=== PATIENT | male | born 1950 | race African-American/Black ===

== ENCOUNTER 2016-08-07 09:38 | Emergency (ER) | payer OTHER ==
[~2016-08-07] VITALS: Ht 193 cm; Wt 79.4 kg
[~2016-08-07 09:38] MED LIST: ASPI81CH43 PO; ATEN-60 PO; BENA40TA2 PO; SIMV-13 PO
[2016-08-07 12:00] VITALS: BP 133/82
== END 2016-08-07 13:09 | disposition home or self-care (01) ==
LOC: ER 09:42
DX: S72.001D Fracture of unspecified part of neck of right femur, subsequent encounter for closed fracture with routine healing (principal); Z48.02 Encounter for removal of sutures; I12.9 Hypertensive chronic kidney disease with stage 1 through stage 4 chronic kidney disease, or unspecified chronic kidney disease; N18.3 Chronic kidney disease, stage 3 (moderate); E11.22 Type 2 diabetes mellitus with diabetic chronic kidney disease; Z86.73 Personal history of transient ischemic attack (TIA), and cerebral infarction without residual deficits

== ENCOUNTER 2019-07-20 19:40 | Inpatient (IN) | payer OTHER ==
[~2019-07-20] VITALS: Ht 188 cm; Wt 80.2 kg
[~2019-07-20 19:40] MED LIST changes: -BENA40TA2 PO; +BENA40TA7 PO
[2019-07-20] MEDS ORDERED: ACCU-CHEK COMFORT CURVE STRIP VI ONE ×2 (20:00→20:15)
[2019-07-20] MEDS ORDERED: DEXTROSE (50%) 50ML SYRG IV ONE ×2 (20:00→20:15)
[2019-07-20] MEDS ORDERED: SODIUM CHLORIDE 0.9% 1,000 ML IVB ONE (20:39)
[2019-07-20 21:02] LABS: Urine Bacteria FEW /hpf (None Seen); Urine Blood 2+ /uL (Negative); Urine Specific Gravity 1.023 (1.001-1.035); Urine WBC 129 /hpf (0 - 3)
[2019-07-20 21:26] LABS: Basophils # (auto) 0 10 ^3/uL (0-0.2); Basophils % (auto) 0.3 % (0.0-2.0); Eosinophils # (auto) 0 10 ^3/uL (0-0.8); Eosinophils % (auto) 0.5 % (0.0-7.0); Hematocrit 36.7 % (41.0-53.0); Lymphocytes # (auto) 0.9 10 ^3/uL (0.4-5.4); Lymphocytes % (auto) 15.6 % (10.0-50.0); Mean Corpuscular Hemoglobin 29.2 pg (28.0-32.0); Mean Corpuscular Hgb Conc. 32.6 g/dL (32.0-36.0); Mean Corpuscular Volume 89.6 fL (80.0-100.0); Monocytes # (auto) 0.8 10 ^3/uL (0-1.3); Monocytes % (auto) 13.9 % (0.0-12.0); Neutrophils # (auto) 3.8 10 ^3/uL (1.6-8.6); Neutrophils % (auto) 69.7 % (37.0-80.0); Nucleated Red Blood Cells % 0.1 %; Platelet Count (auto) 65 10^3/uL (140-450); Red Cell Distribution Width 15.8 % (11.8-14.3); White Blood Cell 5.5 10^3/uL (4.4-10.8)
[2019-07-20] MEDS ORDERED: cefTRIAXone 1GM/50ML D5W 50 ML IV ONE ×2 (21:30)
[2019-07-20 21:41] LABS: INR 1.18 (0.9-1.15); Partial Thromboplastin Time 27.1 sec (23.64-32.05)
[2019-07-20 21:49] LABS: Alanine Aminotransferase 26 U/L (16-61); Albumin 2.8 g/dL (3.4-5.0); Anion Gap 7 (5-15); Aspartate Aminotransferase 34 U/L (15-37); BUN/Creatinine Ratio 14.5; Blood Alcohol < 3.0 mg/dL (0-5); Blood Urea Nitrogen 18 mg/dL (7-18); Calcium 9.1 mg/dL (8.5-10.1); Carbon Dioxide 23 mmol/L (21-32); Chloride 113 mmol/L (98-107); GFR African American 74 mL/min; GFR Non-African American 61 mL/min; Glucose 135 mg/dL (74-106); Potassium 3.7 mmol/L (3.5-5.1); Sodium 143 mmol/L (136-145)
[2019-07-20 21:54] LABS: Alkaline Phosphatase 217 U/L (45-117)
[2019-07-20 22:14] LABS: Magnesium 1.5 mg/dL (1.6-2.6)
[2019-07-20 22:32] LABS: Blood Alcohol < 3.0 mg/dL (0-5)
[2019-07-20] MEDS ORDERED: D5W/SOD CHL 0.45% 1,000 ML IV SCH (22:41)
[2019-07-20] MEDS ORDERED: MORPHINE SULFATE 4 MG/ML SYR/VIAL IV PRN (22:45)
[2019-07-20] MEDS ORDERED: HYDROcodone-ACET 5/325MG TAB PO PRN (22:45)
[2019-07-20] MEDS ORDERED: DOCUSATE SOD 100 MG CAP PO PRN (22:45)
[2019-07-20] MEDS ORDERED: DEXTROSE (50%) 50ML SYRG IV PRN (22:45)
[2019-07-20] MEDS ORDERED: ACETAMINOPHEN 325 MG TAB PO PRN (22:45)
[2019-07-20] MEDS ORDERED: ONDANSETRON HCL 4 MG/2 ML VIAL IV PRN (22:45)
[2019-07-20 23:57] VITALS: BP 144/81
--- NOTE | 2019-07-21 | NUR ---
Telemetry admit from ER CARLOS GLORIA admitted to Telemetry unit. Patient oriented to VICKI OLIVO RN primary RN, [facility] unit, room 277, bed B, and unit policies regarding patient care and visiting hours. Patient now on continuous telemetry monitoring, tele box #[id number]. Patient weighed by bedscale and encouraged to call if they need something. All questions and concerns addressed, patient verbalized understanding. Note: Patient is alert to self, no S/S of distress/SOB noted. Instructed on POC and to call for assist PRN. Bed is in lowest locked position with bed rails up x2 and call light is within reach of the patient, with sitter at bedside.
[2019-07-21] MEDS: ACCU-CHEK COMFORT CURVE STRIP VI SCH ×6 (01:10→20:06)
[2019-07-21] MEDS: InsuLIN REG 1unit/0.01ml Soln (100units/ml) SC SCH ×6 (03:54→20:00)
[2019-07-21 05:00] VITALS: BP 136/74
[2019-07-21 05:10] LABS: Basophils # (auto) 0 10 ^3/uL (0-0.2); Basophils % (auto) 0.6 % (0.0-2.0); Eosinophils # (auto) 0.1 10 ^3/uL (0-0.8); Eosinophils % (auto) 1.1 % (0.0-7.0); Hematocrit 34.9 % (41.0-53.0); Hemoglobin 11.5 g/dL (13.5-17.5); Lymphocytes # (auto) 1.8 10 ^3/uL (0.4-5.4); Lymphocytes % (auto) 35.6 % (10.0-50.0); Mean Corpuscular Hemoglobin 29.6 pg (28.0-32.0); Mean Corpuscular Hgb Conc. 32.9 g/dL (32.0-36.0); Mean Corpuscular Volume 90.1 fL (80.0-100.0); Monocytes # (auto) 0.5 10 ^3/uL (0-1.3); Monocytes % (auto) 10.3 % (0.0-12.0); Neutrophils # (auto) 2.6 10 ^3/uL (1.6-8.6); Neutrophils % (auto) 52.4 % (37.0-80.0); Nucleated Red Blood Cells % 0.3 %; Platelet Count (auto) 82 10^3/uL (140-450); Red Blood Cells 3.87 10^6/uL (4.5-5.90); Red Cell Distribution Width 15.4 % (11.8-14.3)
[2019-07-21 05:36] LABS: Calcium 8.6 mg/dL (8.5-10.1); Potassium 3.4 mmol/L (3.5-5.1)
[2019-07-21 05:40] LABS: BUN/Creatinine Ratio 15.8
[2019-07-21] MEDS ORDERED: POTASSIUM CHL 20 Meq TABLET PO ONE ×3 (07:45→13:30)
[2019-07-21] MEDS ORDERED: MAGNESIUM SULFATE 1GM/100ML 100 ML IV ONE (07:45)
--- NOTE | 2019-07-21 08:15 | NUR ---
Opening Shift Note Assumed care of patient, awake, alert, and oriented to person. No S/S of distress/SOB or pain. Bed in lowest/locked position, bed rails up x2, call light within reach. Instructed on POC and to call for assist PRN. Will continue to monitor for changes Q1hr and PRN.
[2019-07-21 09:00] VITALS: BP 140/69
[2019-07-21] MEDS: LISINOPRIL 20 MG TAB PO SCH (09:08)
[2019-07-21] MEDS ORDERED: CLOPIDOGREL BISULFATE 75 MG TAB PO SCH (10:00)
[2019-07-21] MEDS ORDERED: ASPirin 81 mg TAB PO SCH (10:00)
[2019-07-21] MEDS ORDERED: ATENOLOL 25 MG TAB PO SCH (10:00)
--- NOTE | 2019-07-21 10:40 | NUR ---
Attempted PT eval. 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 Will attempt again later.
[2019-07-21] MEDS ORDERED: ONDANSETRON HCL 4 MG/2 ML VIAL IV ONE (10:45)
[2019-07-21] MEDS ORDERED: IODIXANOL 320MG/ML 100ML BTL IV ONE (10:50)
[2019-07-21] MEDS ORDERED: LIDOCAINE 2%HCL (LOCAL ANESTH.) INJ 20ML MDV ONE (10:50)
--- NOTE | 2019-07-21 11:10 | NUR ---
OFF UNIT PATIENT TAKEN TO GEOTHERMAL HVAC TECHNICIAN FOR PROCEDURE
--- NOTE | 2019-07-21 11:30 | NUR ---
ON UNIT PATIENT RETURNED TO ROOM. PROCEDURE IS BEING HELD AT THIS TIME. WILL CONTINUE TO MONITOR
[2019-07-21 13:00] VITALS: BP 139/75
[2019-07-21] MEDS ORDERED: FUROSEMIDE 20 MG/2 ML VIAL IV ONE (13:00)
[2019-07-21] MEDS ORDERED: MORPHINE SULF INJ 2 MG/ML SYRINGE 1ML IV PRN (13:15)
[2019-07-21] MEDS ORDERED: FUROSEMIDE 100 MG/10ML VIAL IV ONE (13:45)
[2019-07-21 17:00] VITALS: BP 130/79
--- NOTE | 2019-07-21 17:10 | NUR ---
PT PHYSICAL THERAPY ASSISTING PATIENT WITH AMBULATING. PATIENT AMBULATED APPROXIMATELY 50 FEET. PATIENT TOLERATED WELL
--- NOTE | 2019-07-21 19:00 | NUR ---
Opening Shift Note Assumed care of patient, awake and alert to himself and his birthday, on and off to where he is and why. No S/S of distress/SOB or pain. Pt has a sitter. Instructed on POC and to call for assist PRN, will continue to monitor for changes Q1hr and PRN. Pt in lowest possible position with bed rails up x2 and call light within reach. Will continue to monitor.
[2019-07-21 20:00] VITALS: BP 131/72
[2019-07-21] MEDS: ATORVASTATIN 20 MG TAB PO SCH (21:40)
[2019-07-21] MEDS ORDERED: cefTRIAXone 1GM/50ML D5W 50 ML IV SCH (22:00)
[2019-07-22] MEDS ORDERED: SODIUM CHLORIDE 0.9% 1,000 ML IV SCH (00:01)
[2019-07-22] MEDS: ACCU-CHEK COMFORT CURVE STRIP VI SCH ×6 (00:03→20:01)
[2019-07-22] MEDS: InsuLIN REG 1unit/0.01ml Soln (100units/ml) SC SCH ×6 (03:49→20:16)
[2019-07-22 05:52] LABS: BUN/Creatinine Ratio 17.5; Calcium 8.6 mg/dL (8.5-10.1); Potassium 4.1 mmol/L (3.5-5.1)
[2019-07-22 09:00] VITALS: BP 132/69
[2019-07-22] MEDS: LISINOPRIL 20 MG TAB PO SCH (10:03)
[2019-07-22 13:00] VITALS: BP 130/64
--- NOTE | 2019-07-22 13:15 | NUR ---
Spoke with daughter Spoke with patients daughter Katie regarding pending left heart cath consent. Per daughter she wishes to hold off on any type of procedure at this moment and is going to have patient follow up with his primary care provider. Daughter verbalizes they want to get patient out of hospital as soon as possible to reduce risk of infection with COVID-19. Daughter educated on risks of holding off on the procedure, daughter verbalized understanding. Dr. Shankar has been made aware of daughters decision.
[2019-07-22] MEDS ORDERED: LACTULOSE 20Gm/30ML SOLN PO ONE (13:45)
--- NOTE | 2019-07-22 13:51 | NUR ---
OPENING SHIFT NOTE Assumed care patient currently sleeping, no s/s of distress or SOB noted at this moment. Bed in low position, locked, side rails x 2 up, call light within reach. Chastity richardson, draining light khushboo urine, hung below waist level. Will continue care. Addendum: 07/22/19 at 1357 by RAISA RUIZ RN RN time [id number]
[2019-07-22 16:33] VITALS: BP 123/78
--- NOTE | 2019-07-22 19:00 | NUR ---
Opening Shift Note Assumed care of patient, awake and alert to himself. Sitter at bedside. No S/S of distress/SOB or pain. Instructed on POC and to call for assist PRN, will continue to monitor for changes Q1hr and PRN. Patient in the lowest possible position, with bed rails up x2 and call light within reach.
[2019-07-22 20:00] VITALS: BP 146/73
[2019-07-22 21:43] VITALS: BP 146/73
[2019-07-22] MEDS: AMOXICILLIN TRIHYDRATE 250 MG CAP PO SCH (21:54)
[2019-07-22] MEDS: LACTULOSE 20Gm/30ML SOLN PO SCH (21:55)
[2019-07-22] MEDS: ATORVASTATIN 20 MG TAB PO SCH (21:55)
[2019-07-23] MEDS: ACCU-CHEK COMFORT CURVE STRIP VI SCH ×5 (00:01→17:18)
[2019-07-23] MEDS: InsuLIN REG 1unit/0.01ml Soln (100units/ml) SC SCH ×5 (03:47→17:19)
[2019-07-23 05:01] VITALS: BP 127/68
[2019-07-23] MEDS: AMOXICILLIN TRIHYDRATE 250 MG CAP PO SCH ×2 (05:36→15:50)
--- NOTE | 2019-07-23 07:10 | NUR ---
OPENING SHIFT NOTE Assumed care patient currently sleeping, no s/s of distress or SOB noted at this moment. Bed in low position, locked, side rails x 2 up, call light within reach. Haywood patent, draining light khushboo urine, hung below waist level. Will continue care.
[2019-07-23 08:00] VITALS: BP 129/73
[2019-07-23] MEDS: LACTULOSE 20Gm/30ML SOLN PO SCH (09:58)
[2019-07-23] MEDS: LISINOPRIL 20 MG TAB PO SCH (09:59)
--- NOTE | 2019-07-23 12:08 | NUR ---
Nutrition Assessment Notes Please refer to link for full assessment notes. Est energy needs: [id number] kcals (23-25 kcal/kgBW) Est protein needs: 80-88 gms/day (1.0-1.1 gm/kgBW) Will continue to monitor and reassess prn. Addendum: 07/23/19 at [address] Amended: Links added.
[2019-07-23 13:00] VITALS: BP 143/74
--- NOTE | 2019-07-23 13:36 | NUR ---
Gamble catheter dc'd Order to discontinue gamble catheter. Gamble dc'd with clean technique following deflation of balloon. Patient tolerated well with no complaints of pain. Continue care.
[2019-07-23 14:21] VITALS: BP 123/73
--- NOTE | 2019-07-23 16:00 | NUR ---
paged Dr. Shankar paged regarding patient having six episodes of diarrhea throughout this RN's shift. Per MD there is no need to hold patients discharge. Will continue with discharge order.
[2019-07-23 17:00] VITALS: BP 130/72
--- NOTE | 2019-07-23 18:45 | NUR ---
Discharge instructions given as ordered. Encourage to follow up with [facility] as instructed. All questions and concerns addressed. Patient verbalized understanding. IV removed with catheter intact, pressure dressing applied, gamble catheter removed. Telemetry unit returned to ICU, coating technician Bibi was made aware. Patient taken to vehicle via wheelchair with all personal belongings, accompanied by staff. No distress noted at time of departure.
== END 2019-07-23 18:45 | disposition home or self-care (01) | DRG 441 ==
LOC: EDBD 19:40 → EDUNIT# 19:40 → ER 19:43 → TELE-WESTW 19:44
PROVIDERS: ADMIT Hospitalist; ATTEND Internal Medicine
DX: K72.90 Hepatic failure, unspecified without coma (principal); I21.4 Non-ST elevation (NSTEMI) myocardial infarction; I50.43 Acute on chronic combined systolic (congestive) and diastolic (congestive) heart failure; I13.0 Hypertensive heart and chronic kidney disease with heart failure and stage 1 through stage 4 chronic kidney disease, or unspecified chronic kidney disease; N30.00 Acute cystitis without hematuria; D64.9 Anemia, unspecified; D69.6 Thrombocytopenia, unspecified; E83.42 Hypomagnesemia; N18.9 Chronic kidney disease, unspecified; E87.6 Hypokalemia; E78.5 Hyperlipidemia, unspecified; E11.22 Type 2 diabetes mellitus with diabetic chronic kidney disease; I25.10 Atherosclerotic heart disease of native coronary artery without angina pectoris; K74.60 Unspecified cirrhosis of liver; B95.2 Enterococcus as the cause of diseases classified elsewhere; F03.90 Unspecified dementia, unspecified severity, without behavioral disturbance, psychotic disturbance, mood disturbance, and anxiety; E11.649 Type 2 diabetes mellitus with hypoglycemia without coma; F17.200 Nicotine dependence, unspecified, uncomplicated; Z79.4 Long term (current) use of insulin; Z86.73 Personal history of transient ischemic attack (TIA), and cerebral infarction without residual deficits; Z79.899 Other long term (current) drug therapy
CPT/HCPCS: 36415; 70450; 71045; 80048; 80053; 80061; 80320; 81001; 82140; 82962; 83036; 83605; 83735; 84484; 85025; 85610; 85730; 87040; 87086; 87088; 87186; 93005; 96361; 96365; 96367; 97116; 97163; 97530; G0378; J0696; J1815; Q9967

== ENCOUNTER 2019-12-06 09:29 | Emergency (ER) | payer OTHER ==
[~2019-12-06] VITALS: Ht 193 cm; Wt 74.4 kg
[2019-12-06 10:57] LABS: Basophils # (auto) 0 10 ^3/uL (0-0.2); Basophils % (auto) 0.5 % (0.0-2.0); Eosinophils # (auto) 0.1 10 ^3/uL (0-0.8); Eosinophils % (auto) 3.2 % (0.0-7.0); Hematocrit 35.8 % (41.0-53.0); Hemoglobin 11.5 g/dL (13.5-17.5); Lymphocytes # (auto) 1.1 10 ^3/uL (0.4-5.4); Lymphocytes % (auto) 36.9 % (10.0-50.0); Mean Corpuscular Hemoglobin 28.8 pg (28.0-32.0); Mean Corpuscular Volume 89.8 fL (80.0-100.0); Monocytes # (auto) 0.3 10 ^3/uL (0-1.3); Monocytes % (auto) 10.6 % (0.0-12.0); Neutrophils # (auto) 1.5 10 ^3/uL (1.6-8.6); Neutrophils % (auto) 48.8 % (37.0-80.0); Nucleated Red Blood Cells % 0.1 %; Platelet Count (auto) 78 10^3/uL (140-450); Red Blood Cells 3.99 10^6/uL (4.5-5.90); White Blood Cell 3.1 10^3/uL (4.4-10.8)
[2019-12-06 11:13] LABS: Albumin 2.7 g/dL (3.4-5.0); Calcium 8.5 mg/dL (8.5-10.1); Potassium 4.1 mmol/L (3.5-5.1)
[2019-12-06 11:16] LABS: BUN/Creatinine Ratio 11.5; Bilirubin, Total 1.2 mg/dL (0.2-1.0); Total Protein 6.4 g/dL (6.4-8.2)
[2019-12-06 12:32] LABS: Urine Bacteria MOD /hpf (None Seen); Urine Blood 2+ /uL (Negative); Urine Specific Gravity 1.016 (1.001-1.035); Urine WBC 76 /hpf (0 - 3)
[2019-12-06] MEDS ORDERED: cefTRIAXone W LIDOCAINE 1 GM IM IM ONE (13:30)
[2019-12-06] MEDS ORDERED: cefTRIAXone 1GM/50ML D5W 50 ML IV ONE (13:45)
[2019-12-06 20:00] VITALS: BP 146/94
== END 2019-12-06 21:25 | disposition home or self-care (01) ==
LOC: ER 09:29
DX: M79.89 Other specified soft tissue disorders (principal); I13.0 Hypertensive heart and chronic kidney disease with heart failure and stage 1 through stage 4 chronic kidney disease, or unspecified chronic kidney disease; E11.22 Type 2 diabetes mellitus with diabetic chronic kidney disease; N18.9 Chronic kidney disease, unspecified; I50.9 Heart failure, unspecified
CPT/HCPCS: 36415; 80053; 81001; 83880; 85025; 93005; 93971; 96365; 96366; 99285; J0696

== ENCOUNTER 2020-07-10 20:27 | Inpatient (IN) | payer OTHER ==
[~2020-07-10] VITALS: Ht 185.4 cm; Wt 76.9 kg
[~2020-07-10 20:27] MED LIST changes: -BENA40TA7 PO; +BENA40TA8 PO
[2020-07-10 22:00] LABS: Basophils # (auto) 0 10 ^3/uL (0-0.2); Basophils % (auto) 0.4 % (0.0-2.0); Eosinophils # (auto) 0 10 ^3/uL (0-0.8); Eosinophils % (auto) 0.7 % (0.0-7.0); Hematocrit 40.2 % (41.0-53.0); Hemoglobin 13.3 g/dL (13.5-17.5); Lymphocytes # (auto) 1.3 10 ^3/uL (0.4-5.4); Lymphocytes % (auto) 20.2 % (10.0-50.0); Mean Corpuscular Hemoglobin 30.2 pg (28.0-32.0); Mean Corpuscular Hgb Conc. 33.1 g/dL (32.0-36.0); Mean Corpuscular Volume 91.4 fL (80.0-100.0); Monocytes # (auto) 0.9 10 ^3/uL (0-1.3); Monocytes % (auto) 13.5 % (0.0-12.0); Neutrophils # (auto) 4.3 10 ^3/uL (1.6-8.6); Neutrophils % (auto) 65.2 % (37.0-80.0); Nucleated Red Blood Cells % 0.1 %; Platelet Count (auto) 104 10^3/uL (140-450); Red Blood Cells 4.39 10^6/uL (4.5-5.90); Red Cell Distribution Width 15.5 % (11.8-14.3); White Blood Cell 6.6 10^3/uL (4.4-10.8)
[2020-07-10 22:21] LABS: Albumin 3.6 g/dL (3.4-5.0); Calcium 10.1 mg/dL (8.5-10.1)
[2020-07-10 22:30] LABS: Total Protein 8.6 g/dL (6.4-8.2)
[2020-07-10] MEDS ORDERED: InsuLIN REG 1unit/0.01ml Soln (100units/ml) IV ONE (23:25)
[2020-07-10] MEDS ORDERED: ASPirin-EC 325mg tab PO ONE (23:30)
[2020-07-10] MEDS ORDERED: SODIUM CHLORIDE 0.9% 2,000 ML IV ONE (23:45)
[2020-07-11] VITALS (8 sets, daily range): BP systolic 116–158; BP diastolic 76–90
[2020-07-11] MEDS: SODIUM CHLORIDE 0.9% 1,000 ML IV SCH ×2 (01:15→16:58)
[2020-07-11] MEDS ORDERED: DEXTROSE (50%) 50ML SYRG IV PRN (01:15)
[2020-07-11] MEDS ORDERED: HYDROcodone-ACET 5/325MG TAB PO PRN (01:45)
[2020-07-11] MEDS ORDERED: NITROGLYCERIN 0.4 MG SL TAB SL PRN (01:45)
[2020-07-11] MEDS ORDERED: ACETAMINOPHEN 325 MG TAB PO PRN (01:45)
[2020-07-11] MEDS ORDERED: ONDANSETRON HCL 4 MG/2 ML VIAL IV PRN (01:45)
[2020-07-11] MEDS ORDERED: MORPHINE SULF INJ 2 MG/ML SYRINGE 1ML IV PRN (01:45)
[2020-07-11] MEDS ORDERED: DOCUSATE SOD 100 MG CAP PO PRN (01:45)
[2020-07-11] MEDS: InsuLIN REG 1unit/0.01ml Soln (100units/ml) SC SCH ×5 (04:00→20:20)
[2020-07-11] MEDS: ACCU-CHEK COMFORT CURVE STRIP VI SCH ×5 (04:00→20:17)
[2020-07-11] MEDS: INSULIN LANTUS (GLARGINE) 1 /0.01ml (100units/ml) SC SCH ×2 (06:59→21:57)
[2020-07-11 08:39] LABS: Basophils # (auto) 0.2 10 ^3/uL (0-0.2); Basophils % (auto) 2.9 % (0.0-2.0); Eosinophils # (auto) 0 10 ^3/uL (0-0.8); Eosinophils % (auto) 0.7 % (0.0-7.0); Hematocrit 37.4 % (41.0-53.0); Hemoglobin 12.5 g/dL (13.5-17.5); Lymphocytes # (auto) 0.8 10 ^3/uL (0.4-5.4); Lymphocytes % (auto) 14.2 % (10.0-50.0); Mean Corpuscular Hgb Conc. 33.3 g/dL (32.0-36.0); Mean Corpuscular Volume 90.1 fL (80.0-100.0); Monocytes # (auto) 0.4 10 ^3/uL (0-1.3); Monocytes % (auto) 6.9 % (0.0-12.0); Neutrophils % (auto) 75.3 % (37.0-80.0); Nucleated Red Blood Cells % 0.1 %; Platelet Count (auto) 93 10^3/uL (140-450); Red Blood Cells 4.15 10^6/uL (4.5-5.90); Red Cell Distribution Width 15.2 % (11.8-14.3); White Blood Cell 5.3 10^3/uL (4.4-10.8)
[2020-07-11 08:46] LABS: Albumin 2.8 g/dL (3.4-5.0); BUN/Creatinine Ratio 15.5; Calcium 8.8 mg/dL (8.5-10.1)
[2020-07-11 08:49] LABS: Bilirubin, Total 2.2 mg/dL (0.2-1.0); Total Protein 7.2 g/dL (6.4-8.2)
[2020-07-11 08:52] LABS: Urine Bacteria NONE SEEN /hpf (None Seen); Urine WBC 117 /hpf (0 - 3); Urine WBC Clumps PRESENT /hpf (None Seen)
[2020-07-11 08:55] LABS: Urine Specific Gravity 1.031 (1.001-1.035)
[2020-07-11 08:56] LABS: Urine Blood 2+ /uL (Negative)
[2020-07-11] MEDS: HEPARIN SODIUM (PORCINE) 5000 UNITS/ML 1ML VIAL SC SCH ×2 (10:02→22:00)
[2020-07-11] MEDS: ZINC SULFATE 220mg CAP or TAB PO SCH (10:05)
[2020-07-11] MEDS: MULTIPLE VITAMIN TAB PO SCH (10:06)
[2020-07-11] MEDS: ASPirin 81 mg TAB PO SCH (10:06)
[2020-07-11] MEDS: ASCORBIC ACID 500 MG TAB PO SCH ×2 (10:06→21:59)
[2020-07-11 10:42] LABS: INR 1.07 (0.9-1.15); Partial Thromboplastin Time 25.3 sec (23.0-31.2)
[2020-07-11] MEDS: LACTULOSE 20Gm/30ML SOLN PO SCH (21:58)
[2020-07-11] MEDS: ATORVASTATIN 20 MG TAB PO SCH (21:59)
[2020-07-12] MEDS: ACCU-CHEK COMFORT CURVE STRIP VI SCH ×6 (00:13→19:28)
[2020-07-12] MEDS: MORPHINE SULFATE 4 MG/ML SYR/VIAL IV PRN ×2 (01:10→12:15)
[2020-07-12] MEDS: InsuLIN REG 1unit/0.01ml Soln (100units/ml) SC SCH ×6 (04:00→19:28)
[2020-07-12] MEDS: SODIUM CHLORIDE 0.9% 1,000 ML IV SCH ×2 (04:06→17:03)
[2020-07-12 05:00] VITALS: BP 153/78
[2020-07-12] MEDS: INSULIN LANTUS (GLARGINE) 1 /0.01ml (100units/ml) SC SCH ×2 (06:34→22:11)
[2020-07-12 07:03] LABS: Basophils # (auto) 0 10 ^3/uL (0-0.2); Basophils % (auto) 0.6 % (0.0-2.0); Eosinophils # (auto) 0 10 ^3/uL (0-0.8); Eosinophils % (auto) 0.4 % (0.0-7.0); Hematocrit 37.4 % (41.0-53.0); Hemoglobin 12.5 g/dL (13.5-17.5); Lymphocytes # (auto) 1.9 10 ^3/uL (0.4-5.4); Lymphocytes % (auto) 32.2 % (10.0-50.0); Mean Corpuscular Hemoglobin 30.2 pg (28.0-32.0); Mean Corpuscular Hgb Conc. 33.5 g/dL (32.0-36.0); Mean Corpuscular Volume 90.2 fL (80.0-100.0); Monocytes # (auto) 0.7 10 ^3/uL (0-1.3); Monocytes % (auto) 11.9 % (0.0-12.0); Neutrophils # (auto) 3.3 10 ^3/uL (1.6-8.6); Neutrophils % (auto) 54.9 % (37.0-80.0); Nucleated Red Blood Cells % 0.2 %; Platelet Count (auto) 81 10^3/uL (140-450); Red Blood Cells 4.14 10^6/uL (4.5-5.90); Red Cell Distribution Width 15.1 % (11.8-14.3)
[2020-07-12 07:13] LABS: Albumin 2.8 g/dL (3.4-5.0); BUN/Creatinine Ratio 19.6; Potassium 4.2 mmol/L (3.5-5.1)
[2020-07-12 07:18] LABS: Bilirubin, Total 2.2 mg/dL (0.2-1.0); Total Protein 7.2 g/dL (6.4-8.2)
[2020-07-12 08:00] VITALS: BP 158/84
[2020-07-12 09:18] VITALS: BP 158/84
[2020-07-12] MEDS: ASCORBIC ACID 500 MG TAB PO SCH ×2 (09:57→22:10)
[2020-07-12] MEDS: ASPirin 81 mg TAB PO SCH (09:57)
[2020-07-12] MEDS: ZINC SULFATE 220mg CAP or TAB PO SCH (09:57)
[2020-07-12] MEDS: HEPARIN SODIUM (PORCINE) 5000 UNITS/ML 1ML VIAL SC SCH ×2 (09:57→22:10)
[2020-07-12] MEDS: LACTULOSE 20Gm/30ML SOLN PO SCH ×2 (09:57→22:09)
[2020-07-12] MEDS: MULTIPLE VITAMIN TAB PO SCH (09:57)
[2020-07-12 12:55] VITALS: BP 143/76
[2020-07-12 17:00] VITALS: BP 149/97
[2020-07-12 22:00] VITALS: BP 138/72
[2020-07-12] MEDS: ATORVASTATIN 20 MG TAB PO SCH (22:09)
[2020-07-13] MEDS: ACCU-CHEK COMFORT CURVE STRIP VI SCH ×7 (00:06→23:28)
[2020-07-13] MEDS: InsuLIN REG 1unit/0.01ml Soln (100units/ml) SC SCH ×7 (04:00→23:32)
[2020-07-13 05:00] VITALS: BP 138/78
[2020-07-13] MEDS: SODIUM CHLORIDE 0.9% 1,000 ML IV SCH (05:35)
[2020-07-13 05:39] LABS: Basophils # (auto) 0 10 ^3/uL (0-0.2); Basophils % (auto) 0.6 % (0.0-2.0); Eosinophils # (auto) 0.1 10 ^3/uL (0-0.8); Hematocrit 36.4 % (41.0-53.0); Hemoglobin 12.4 g/dL (13.5-17.5); Lymphocytes # (auto) 1.6 10 ^3/uL (0.4-5.4); Lymphocytes % (auto) 39.6 % (10.0-50.0); Monocytes # (auto) 0.5 10 ^3/uL (0-1.3); Monocytes % (auto) 11.9 % (0.0-12.0); Neutrophils # (auto) 1.9 10 ^3/uL (1.6-8.6); Neutrophils % (auto) 45.9 % (37.0-80.0); Nucleated Red Blood Cells % 0.1 %; Platelet Count (auto) 75 10^3/uL (140-450); Red Cell Distribution Width 14.7 % (11.8-14.3)
[2020-07-13 05:59] LABS: Albumin 2.5 g/dL (3.4-5.0); Calcium 8.3 mg/dL (8.5-10.1)
[2020-07-13 06:05] LABS: BUN/Creatinine Ratio 23.8; Bilirubin, Total 1.7 mg/dL (0.2-1.0); Total Protein 6.4 g/dL (6.4-8.2)
[2020-07-13] MEDS: INSULIN LANTUS (GLARGINE) 1 /0.01ml (100units/ml) SC SCH ×2 (06:27→22:04)
[2020-07-13 08:00] VITALS: BP 139/80
[2020-07-13 08:27] VITALS: BP 139/80
[2020-07-13] MEDS: HEPARIN SODIUM (PORCINE) 5000 UNITS/ML 1ML VIAL SC SCH ×2 (10:00→21:55)
[2020-07-13] MEDS: ZINC SULFATE 220mg CAP or TAB PO SCH (11:21)
[2020-07-13] MEDS: ASCORBIC ACID 500 MG TAB PO SCH ×2 (11:21→22:03)
[2020-07-13] MEDS: MULTIPLE VITAMIN TAB PO SCH (11:21)
[2020-07-13] MEDS: LACTULOSE 20Gm/30ML SOLN PO SCH ×2 (11:21→22:03)
[2020-07-13] MEDS: ASPirin 81 mg TAB PO SCH (11:22)
[2020-07-13 12:41] VITALS: BP 158/92
[2020-07-13] MEDS ORDERED: cefTRIAXone 1GM/50ML D5W 50 ML IV ONE (15:15)
[2020-07-13] MEDS ORDERED: MORPHINE SULF INJ 2 MG/ML SYRINGE 1ML IV PRN (15:15)
[2020-07-13 16:36] VITALS: BP 140/79
[2020-07-13 22:00] VITALS: BP 135/84
[2020-07-13] MEDS: ATORVASTATIN 20 MG TAB PO SCH (22:03)
[2020-07-14] MEDS: ACCU-CHEK COMFORT CURVE STRIP VI SCH ×4 (03:44→16:00)
[2020-07-14] MEDS: InsuLIN REG 1unit/0.01ml Soln (100units/ml) SC SCH ×4 (03:44→16:00)
[2020-07-14 05:00] VITALS: BP 129/79
[2020-07-14 05:37] LABS: Basophils # (auto) 0 10 ^3/uL (0-0.2); Basophils % (auto) 0.4 % (0.0-2.0); Eosinophils # (auto) 0 10 ^3/uL (0-0.8); Eosinophils % (auto) 0.8 % (0.0-7.0); Hemoglobin 11.8 g/dL (13.5-17.5); Lymphocytes # (auto) 1.2 10 ^3/uL (0.4-5.4); Lymphocytes % (auto) 27.1 % (10.0-50.0); Mean Corpuscular Hemoglobin 30.6 pg (28.0-32.0); Mean Corpuscular Hgb Conc. 33.7 g/dL (32.0-36.0); Mean Corpuscular Volume 90.8 fL (80.0-100.0); Monocytes # (auto) 0.7 10 ^3/uL (0-1.3); Monocytes % (auto) 16.1 % (0.0-12.0); Neutrophils # (auto) 2.5 10 ^3/uL (1.6-8.6); Neutrophils % (auto) 55.6 % (37.0-80.0); Nucleated Red Blood Cells % 0.2 %; Platelet Count (auto) 75 10^3/uL (140-450); Red Blood Cells 3.85 10^6/uL (4.5-5.90); Red Cell Distribution Width 14.6 % (11.8-14.3); White Blood Cell 4.4 10^3/uL (4.4-10.8)
[2020-07-14 05:54] LABS: INR 1.07 (0.9-1.15)
[2020-07-14 05:57] LABS: Albumin 2.5 g/dL (3.4-5.0); Calcium 8.3 mg/dL (8.5-10.1); Potassium 4.1 mmol/L (3.5-5.1)
[2020-07-14 06:00] LABS: BUN/Creatinine Ratio 21.1; Bilirubin, Total 1.4 mg/dL (0.2-1.0); Total Protein 6.4 g/dL (6.4-8.2)
[2020-07-14] MEDS: INSULIN LANTUS (GLARGINE) 1 /0.01ml (100units/ml) SC SCH (06:30)
[2020-07-14 08:59] VITALS: BP 143/85
[2020-07-14] MEDS ORDERED: cefTRIAXone 1GM/50ML D5W 50 ML IV SCH (09:00)
[2020-07-14] MEDS: LACTULOSE 20Gm/30ML SOLN PO SCH (09:44)
[2020-07-14] MEDS: MULTIPLE VITAMIN TAB PO SCH (09:44)
[2020-07-14] MEDS: ASCORBIC ACID 500 MG TAB PO SCH (09:44)
[2020-07-14] MEDS: ZINC SULFATE 220mg CAP or TAB PO SCH (09:44)
[2020-07-14] MEDS: ASPirin 81 mg TAB PO SCH (09:44)
[2020-07-14] MEDS: HEPARIN SODIUM (PORCINE) 5000 UNITS/ML 1ML VIAL SC SCH (09:45)
[2020-07-14 12:55] VITALS: BP 147/81
[2020-07-14 16:59] VITALS: BP 155/85
[2020-07-14 17:04] VITALS: BP 155/85
== END 2020-07-14 19:20 | disposition home health service (06) | DRG 441 ==
LOC: EDBD 20:27 → EDUNIT# 20:27 → ER 20:30 → TELE 07-11 01:33 → TELE-WESTW 07-11 04:04
PROVIDERS: ADMIT Nurse Practitioner Family; ATTEND Internal Medicine
DX: K72.90 Hepatic failure, unspecified without coma (principal); N17.0 Acute kidney failure with tubular necrosis; I21.A1 Myocardial infarction type 2; E44.0 Moderate protein-calorie malnutrition; E87.1 Hypo-osmolality and hyponatremia; K80.00 Calculus of gallbladder with acute cholecystitis without obstruction; E11.65 Type 2 diabetes mellitus with hyperglycemia; Z20.822 Contact with and (suspected) exposure to COVID-19; K70.30 Alcoholic cirrhosis of liver without ascites; M54.5 Low back pain; E11.40 Type 2 diabetes mellitus with diabetic neuropathy, unspecified; N18.9 Chronic kidney disease, unspecified; E88.09 Other disorders of plasma-protein metabolism, not elsewhere classified; E11.21 Type 2 diabetes mellitus with diabetic nephropathy; Z68.22 Body mass index [BMI] 22.0-22.9, adult; E11.22 Type 2 diabetes mellitus with diabetic chronic kidney disease; D69.6 Thrombocytopenia, unspecified; I12.9 Hypertensive chronic kidney disease with stage 1 through stage 4 chronic kidney disease, or unspecified chronic kidney disease; Z86.73 Personal history of transient ischemic attack (TIA), and cerebral infarction without residual deficits
CPT/HCPCS: 36415; 70450; 71045; 72131; 76705; 80053; 81001; 82140; 82962; 83036; 84443; 84484; 85025; 85610; 85730; 87426; 93005; 96361; 96374; G0378; J0696; J1815

== ENCOUNTER 2020-10-30 10:26 | Inpatient (IN) | payer OTHER ==
[~2020-10-30] VITALS: Ht 188 cm; Wt 75.0 kg
[2020-10-30] MEDS: SODIUM CHLORIDE 0.9% 1,000 ML IV SCH ×2 (01:40→14:52)
[2020-10-30 11:20] LABS: Hemoglobin 13.5 g/dL (13.5-17.5); Mean Corpuscular Hemoglobin 31.2 pg (28.0-32.0); Mean Corpuscular Hgb Conc. 34.7 g/dL (32.0-36.0); Red Blood Cells 4.34 10^6/uL (4.5-5.90); Red Cell Distribution Width 14.6 % (11.8-14.3); White Blood Cell 4.1 10^3/uL (4.4-10.8)
[2020-10-30 11:23] LABS: Band Neutrophils % (manual) 0; Basophils % (manual) 0 (0.0-2.0); Blast Cells 0; Eosinophils % (manual) 0 (0-7); Myelocytes % 0; Promyelocytes % 0; Reactive Lymphocytes 0
[2020-10-30] MEDS ORDERED: SODIUM CHLORIDE 0.9% 1,000 ML IVB ONE (11:30)
[2020-10-30 11:33] LABS: Potassium 4.1 mmol/L (3.5-5.1)
[2020-10-30 11:45] LABS: Albumin 2.7 g/dL (3.4-5.0); BUN/Creatinine Ratio 9.6; Bilirubin, Total 1.1 mg/dL (0.2-1.0); Calcium 8.9 mg/dL (8.5-10.1); Magnesium 1.3 mg/dL (1.6-2.6); Total Protein 7.4 g/dL (6.4-8.2)
[2020-10-30 11:54] LABS: Lymphocytes % (manual) 43 (10.0-50.0); Metamyelocytes % 2; Monocytes % (manual) 3 (0-12)
[2020-10-30] MEDS ORDERED: SODIUM CHLORIDE 0.9% 1,000 ML IV ONE (13:30)
[2020-10-30] MEDS ORDERED: MORPHINE SULFATE INJECTION 2 MG/ML SYRG IV PRN ×2 (14:30)
[2020-10-30] MEDS ORDERED: DEXTROSE (50%) 50ML SYRG IV PRN (14:30)
[2020-10-30] MEDS ORDERED: ONDANSETRON HCL 4 MG/2 ML VIAL IV PRN (14:30)
[2020-10-30] MEDS ORDERED: NITROGLYCERIN 0.4 MG SL TAB SL PRN (14:30)
[2020-10-30] MEDS: MAGNESIUM SULFATE 1GM/100ML 100 ML IV SCH ×2 (14:52→16:20)
[2020-10-30] MEDS: ACCU-CHEK COMFORT CURVE STRIP VI SCH ×2 (17:10→22:00)
[2020-10-30] MEDS: InsuLIN REG 1unit/0.01ml Soln (100units/ml) SC SCH ×2 (17:33→22:00)
[2020-10-30 19:10] VITALS: BP 132/79
[2020-10-30] MEDS: ATORVASTATIN 20 MG TAB PO SCH (22:00)
[2020-10-30 22:32] VITALS: BP 132/78
[2020-10-31] MEDS: SODIUM CHLORIDE 0.9% 1,000 ML IV SCH ×2 (00:40→07:00)
[2020-10-31 05:56] VITALS: BP 146/72
[2020-10-31] MEDS: InsuLIN REG 1unit/0.01ml Soln (100units/ml) SC SCH ×4 (06:10→21:37)
[2020-10-31] MEDS: ACCU-CHEK COMFORT CURVE STRIP VI SCH ×4 (07:01→21:30)
[2020-10-31 07:55] LABS: Basophils # (auto) 0.1 10 ^3/uL (0-0.2); Eosinophils # (auto) 0.1 10 ^3/uL (0-0.8); Hematocrit 41.7 % (41.0-53.0); Hemoglobin 14.2 g/dL (13.5-17.5); Lymphocytes % (auto) 20.4 % (10.0-50.0); Mean Corpuscular Hemoglobin 30.4 pg (28.0-32.0); Mean Corpuscular Volume 89.5 fL (80.0-100.0); Monocytes # (auto) 0.8 10 ^3/uL (0-1.3); Monocytes % (auto) 15.2 % (0.0-12.0); Neutrophils # (auto) 3.1 10 ^3/uL (1.6-8.6); Neutrophils % (auto) 61.4 % (37.0-80.0); Nucleated Red Blood Cells % 0.4 %; Red Blood Cells 4.66 10^6/uL (4.5-5.90); Red Cell Distribution Width 14.8 % (11.8-14.3); White Blood Cell 5.1 10^3/uL (4.4-10.8)
[2020-10-31 08:16] LABS: Anion Gap 6 (5-15); Blood Urea Nitrogen 11 mg/dL (7-18); Calcium 8.2 mg/dL (8.5-10.1); Carbon Dioxide 22 mmol/L (21-32); Chloride 105 mmol/L (98-107); Glucose 175 mg/dL (74-106); Potassium 4.1 mmol/L (3.5-5.1); Sodium 133 mmol/L (136-145)
[2020-10-31 08:22] LABS: BUN/Creatinine Ratio 13.6; GFR African American 121 mL/min; GFR Non-African American 100 mL/min
[2020-10-31 08:36] LABS: Albumin 2.5 g/dL (3.4-5.0)
[2020-10-31 08:40] LABS: Alkaline Phosphatase 297 U/L (45-117); Bilirubin, Total 0.9 mg/dL (0.2-1.0)
[2020-10-31 09:00] VITALS: BP 147/85
[2020-10-31] MEDS: ATENOLOL 25 MG TAB PO SCH (10:00)
[2020-10-31] MEDS: BENAZEPRIL HCL 10 MG TAB PO SCH (10:00)
[2020-10-31] MEDS: FAMOTIDINE 20 MG TAB PO SCH (10:00)
[2020-10-31] MEDS: ASPirin 81 mg TAB PO SCH (10:00)
[2020-10-31 12:50] VITALS: BP 135/85
[2020-10-31 16:40] VITALS: BP 134/80
[2020-10-31] MEDS: ATORVASTATIN 20 MG TAB PO SCH (21:30)
[2020-10-31 22:00] VITALS: BP 135/73
[2020-10-31] MEDS ORDERED: LORazepam 2MG/ML-1ML VIAL IV PRN (23:45)
[2020-11-01 05:00] VITALS: BP 147/99
[2020-11-01] MEDS: SODIUM CHLORIDE 0.9% 1,000 ML IV SCH ×2 (06:25→14:00)
[2020-11-01] MEDS: InsuLIN REG 1unit/0.01ml Soln (100units/ml) SC SCH ×4 (06:58→21:23)
[2020-11-01] MEDS: ACCU-CHEK COMFORT CURVE STRIP VI SCH ×4 (06:58→21:21)
[2020-11-01 07:01] LABS: Basophils # (auto) 0 10 ^3/uL (0-0.2); Basophils % (auto) 0.3 % (0.0-2.0); Eosinophils # (auto) 0 10 ^3/uL (0-0.8); Eosinophils % (auto) 0.3 % (0.0-7.0); Hematocrit 43.5 % (41.0-53.0); Hemoglobin 14.8 g/dL (13.5-17.5); Lymphocytes # (auto) 1.1 10 ^3/uL (0.4-5.4); Lymphocytes % (auto) 26.6 % (10.0-50.0); Mean Corpuscular Hemoglobin 30.3 pg (28.0-32.0); Mean Corpuscular Volume 89.2 fL (80.0-100.0); Monocytes # (auto) 0.6 10 ^3/uL (0-1.3); Monocytes % (auto) 15.1 % (0.0-12.0); Neutrophils # (auto) 2.4 10 ^3/uL (1.6-8.6); Neutrophils % (auto) 57.7 % (37.0-80.0); Nucleated Red Blood Cells % 0.4 %; Red Blood Cells 4.88 10^6/uL (4.5-5.90); Red Cell Distribution Width 14.5 % (11.8-14.3); White Blood Cell 4.2 10^3/uL (4.4-10.8)
[2020-11-01 07:15] LABS: BUN/Creatinine Ratio 16.3; Calcium 8.3 mg/dL (8.5-10.1); Potassium 3.9 mmol/L (3.5-5.1)
[2020-11-01] MEDS ORDERED: LORazepam 2MG/ML-1ML VIAL IV PRN (08:15)
[2020-11-01] MEDS: FAMOTIDINE 20 MG TAB PO SCH (08:32)
[2020-11-01] MEDS: ASPirin 81 mg TAB PO SCH (08:32)
[2020-11-01] MEDS: ATENOLOL 25 MG TAB PO SCH (08:33)
[2020-11-01] MEDS: BENAZEPRIL HCL 10 MG TAB PO SCH (08:33)
[2020-11-01 09:00] VITALS: BP 155/73
[2020-11-01 09:19] LABS: Cholesterol 124 mg/dL (< 200); Triglycerides 91 mg/dL (< 150)
[2020-11-01 09:22] LABS: HDL Cholesterol 49 mg/dL (40-59); LDL Cholesterol 68 mg/dL (< 100)
[2020-11-01 11:09] LABS: Folate (Folic Acid) > 24.00 ng/mL (5.38-24)
[2020-11-01 13:00] VITALS: BP 144/75
[2020-11-01 16:51] VITALS: BP 132/90
[2020-11-01] MEDS: LACTULOSE 20Gm/30ML SOLN PO SCH (17:16)
[2020-11-01] MEDS: LORazepam 2MG/ML-1ML VIAL IV PRN (17:29)
[2020-11-01] MEDS: ATORVASTATIN 20 MG TAB PO SCH (21:20)
[2020-11-01 22:00] VITALS: BP 140/78
[2020-11-01] MEDS ORDERED: INSULIN LANTUS (GLARGINE) 1 /0.01ml (100units/ml) SC SCH (22:00)
[2020-11-02 04:33] LABS: Urine Bacteria MANY /hpf (None Seen); Urine Blood 3+ /uL (Negative); Urine Budding Yeast MANY /hpf (None Seen); Urine Mucus FEW (None Seen); Urine Specific Gravity 1.021 (1.001-1.035); Urine WBC 636 /hpf (0 - 3); Urine WBC Clumps PRESENT /hpf (None Seen)
[2020-11-02] MEDS: LORazepam 2MG/ML-1ML VIAL IV PRN (04:51)
[2020-11-02 05:00] VITALS: BP 153/78
[2020-11-02] MEDS: LACTULOSE 20Gm/30ML SOLN PO SCH ×5 (06:00→23:16)
[2020-11-02] MEDS: SODIUM CHLORIDE 0.9% 1,000 ML IV SCH ×2 (06:24→16:15)
[2020-11-02] MEDS: ACCU-CHEK COMFORT CURVE STRIP VI SCH ×4 (06:53→22:00)
[2020-11-02] MEDS: InsuLIN REG 1unit/0.01ml Soln (100units/ml) SC SCH ×4 (06:54→23:10)
[2020-11-02 09:00] VITALS: BP 147/88
[2020-11-02 09:30] LABS: Basophils # (auto) 0 10 ^3/uL (0-0.2); Basophils % (auto) 0.7 % (0.0-2.0); Eosinophils # (auto) 0 10 ^3/uL (0-0.8); Eosinophils % (auto) 0.2 % (0.0-7.0); Hematocrit 45.5 % (41.0-53.0); Hemoglobin 15.1 g/dL (13.5-17.5); Lymphocytes # (auto) 1.2 10 ^3/uL (0.4-5.4); Lymphocytes % (auto) 22.2 % (10.0-50.0); Mean Corpuscular Hemoglobin 29.4 pg (28.0-32.0); Mean Corpuscular Hgb Conc. 33.2 g/dL (32.0-36.0); Mean Corpuscular Volume 88.5 fL (80.0-100.0); Monocytes # (auto) 0.9 10 ^3/uL (0-1.3); Monocytes % (auto) 16.7 % (0.0-12.0); Neutrophils # (auto) 3.3 10 ^3/uL (1.6-8.6); Neutrophils % (auto) 60.2 % (37.0-80.0); Nucleated Red Blood Cells % 0.3 %; Red Blood Cells 5.14 10^6/uL (4.5-5.90); Red Cell Distribution Width 14.6 % (11.8-14.3); White Blood Cell 5.5 10^3/uL (4.4-10.8)
[2020-11-02 09:59] LABS: Albumin 2.6 g/dL (3.4-5.0); Calcium 8.8 mg/dL (8.5-10.1); Magnesium 1.3 mg/dL (1.6-2.6); Potassium 4.3 mmol/L (3.5-5.1)
[2020-11-02] MEDS: BENAZEPRIL HCL 10 MG TAB PO SCH (10:00)
[2020-11-02 10:07] LABS: BUN/Creatinine Ratio 15.9; Bilirubin, Total 1.2 mg/dL (0.2-1.0); Total Protein 7.5 g/dL (6.4-8.2)
[2020-11-02] MEDS: FAMOTIDINE 20 MG TAB PO SCH (10:13)
[2020-11-02] MEDS: ASPirin 81 mg TAB PO SCH (10:13)
[2020-11-02] MEDS: ATENOLOL 25 MG TAB PO SCH (10:18)
[2020-11-02 13:00] VITALS: BP 122/60
[2020-11-02] MEDS ORDERED: cefTRIAXone 1GM/50ML D5W 50 ML IV ONE (13:45)
[2020-11-02] MEDS: MAGNESIUM SULFATE 1GM/100ML 100 ML IV SCH ×2 (16:14→23:17)
[2020-11-02 17:00] VITALS: BP 139/69
[2020-11-02 22:00] VITALS: BP 124/81
[2020-11-02] MEDS ORDERED: MAGNESIUM SULFATE 1GM/100ML 100 ML IV ONE (23:13)
[2020-11-02] MEDS: ACETAMINOPHEN 500 MG TAB PO PRN (23:15)
[2020-11-02] MEDS: INSULIN LANTUS (GLARGINE) 1 /0.01ml (100units/ml) SC SCH (23:15)
[2020-11-02] MEDS: ATORVASTATIN 20 MG TAB PO SCH (23:16)
[2020-11-03 05:00] VITALS: BP 140/75
[2020-11-03 06:16] LABS: Magnesium 1.9 mg/dL (1.6-2.6); Potassium 3.6 mmol/L (3.5-5.1)
[2020-11-03] MEDS: ACCU-CHEK COMFORT CURVE STRIP VI SCH ×4 (06:24→21:13)
[2020-11-03] MEDS: LACTULOSE 20Gm/30ML SOLN PO SCH ×4 (06:25→21:18)
[2020-11-03] MEDS: HYDROcodone-ACET 5/325MG TAB PO PRN ×2 (06:25→15:00)
[2020-11-03] MEDS: InsuLIN REG 1unit/0.01ml Soln (100units/ml) SC SCH ×4 (06:37→21:36)
[2020-11-03 09:00] VITALS: BP 169/80
[2020-11-03] MEDS: ATENOLOL 25 MG TAB PO SCH (10:23)
[2020-11-03] MEDS: cefTRIAXone 1GM/50ML D5W 50 ML IV SCH (10:23)
[2020-11-03] MEDS: ASPirin 81 mg TAB PO SCH (10:23)
[2020-11-03] MEDS: BENAZEPRIL HCL 10 MG TAB PO SCH (10:23)
[2020-11-03] MEDS: FAMOTIDINE 20 MG TAB PO SCH (10:24)
[2020-11-03] MEDS: SODIUM CHLORIDE 0.9% 1,000 ML IV SCH (10:33)
[2020-11-03 13:00] VITALS: BP 125/64
[2020-11-03 17:00] VITALS: BP 116/65
[2020-11-03] MEDS ORDERED: POTASSIUM CHL 20 Meq TABLET PO ONE (17:00)
[2020-11-03] MEDS ORDERED: MAGNESIUM SULFATE 1GM/100ML 100 ML IV ONE (17:00)
[2020-11-03 20:45] VITALS: BP 119/75
[2020-11-03] MEDS: ATORVASTATIN 20 MG TAB PO SCH (21:13)
[2020-11-03] MEDS: INSULIN LANTUS (GLARGINE) 1 /0.01ml (100units/ml) SC SCH (21:36)
[2020-11-03] MEDS: ACETAMINOPHEN 500 MG TAB PO PRN (23:38)
[2020-11-04] VITALS (7 sets, daily range): BP systolic 120–135; BP diastolic 71–78
[2020-11-04] MEDS: LACTULOSE 20Gm/30ML SOLN PO SCH ×3 (05:56→21:07)
[2020-11-04] MEDS: ACCU-CHEK COMFORT CURVE STRIP VI SCH ×4 (05:56→21:21)
[2020-11-04] MEDS: InsuLIN REG 1unit/0.01ml Soln (100units/ml) SC SCH ×4 (06:21→21:20)
[2020-11-04] MEDS: ASPirin 81 mg TAB PO SCH (09:03)
[2020-11-04] MEDS: cefTRIAXone 1GM/50ML D5W 50 ML IV SCH (09:03)
[2020-11-04] MEDS: FAMOTIDINE 20 MG TAB PO SCH (09:03)
[2020-11-04] MEDS: ATENOLOL 25 MG TAB PO SCH (09:04)
[2020-11-04] MEDS: BENAZEPRIL HCL 10 MG TAB PO SCH (09:04)
[2020-11-04] MEDS ORDERED: INSLANTI SC (09:41)
[2020-11-04] MEDS ORDERED: ATOR20TA PO (09:41)
[2020-11-04] MEDS ORDERED: LEVO500T31 PO (09:41)
[2020-11-04] MEDS ORDERED: LACT10SO70 PO (09:42)
[2020-11-04] MEDS: ATORVASTATIN 20 MG TAB PO SCH (21:07)
[2020-11-04] MEDS: INSULIN LANTUS (GLARGINE) 1 /0.01ml (100units/ml) SC SCH (21:21)
[2020-11-05 04:52] VITALS: BP 125/69
[2020-11-05] MEDS: ACCU-CHEK COMFORT CURVE STRIP VI SCH ×4 (06:31→21:41)
[2020-11-05] MEDS: InsuLIN REG 1unit/0.01ml Soln (100units/ml) SC SCH ×4 (06:31→21:41)
[2020-11-05 08:06] LABS: Immunoglobulin G, Serum 1881 mg/dL (603-1613)
[2020-11-05 09:00] VITALS: BP 125/73
[2020-11-05] MEDS: ASPirin 81 mg TAB PO SCH (09:26)
[2020-11-05] MEDS: FAMOTIDINE 20 MG TAB PO SCH (09:27)
[2020-11-05] MEDS: levoFLOXacin 500 MG TAB PO SCH (09:27)
[2020-11-05] MEDS: BENAZEPRIL HCL 10 MG TAB PO SCH (09:28)
[2020-11-05] MEDS: LACTULOSE 20Gm/30ML SOLN PO SCH ×2 (09:28→21:41)
[2020-11-05] MEDS: ATENOLOL 25 MG TAB PO SCH (10:00)
[2020-11-05 11:20] LABS: Basophils # (auto) 0 10 ^3/uL (0-0.2); Basophils % (auto) 0.5 % (0.0-2.0); Eosinophils # (auto) 0.1 10 ^3/uL (0-0.8); Eosinophils % (auto) 1.7 % (0.0-7.0); Hemoglobin 13.2 g/dL (13.5-17.5); Lymphocytes # (auto) 1.8 10 ^3/uL (0.4-5.4); Lymphocytes % (auto) 30.2 % (10.0-50.0); Mean Corpuscular Hemoglobin 29.6 pg (28.0-32.0); Mean Corpuscular Hgb Conc. 32.9 g/dL (32.0-36.0); Mean Corpuscular Volume 89.8 fL (80.0-100.0); Monocytes % (auto) 17.2 % (0.0-12.0); Neutrophils % (auto) 50.4 % (37.0-80.0); Nucleated Red Blood Cells % 0.2 %; Red Blood Cells 4.46 10^6/uL (4.5-5.90); Red Cell Distribution Width 15.1 % (11.8-14.3)
[2020-11-05 13:00] VITALS: BP 159/73
[2020-11-05 17:00] VITALS: BP 128/74
[2020-11-05] MEDS: ATORVASTATIN 20 MG TAB PO SCH (21:40)
[2020-11-05] MEDS: INSULIN LANTUS (GLARGINE) 1 /0.01ml (100units/ml) SC SCH (21:42)
[2020-11-05 22:00] VITALS: BP 122/82
[2020-11-06] MEDS: ACCU-CHEK COMFORT CURVE STRIP VI SCH ×4 (06:18→21:26)
[2020-11-06] MEDS: InsuLIN REG 1unit/0.01ml Soln (100units/ml) SC SCH ×4 (06:23→21:27)
[2020-11-06 09:00] VITALS: BP 133/76
[2020-11-06] MEDS: LACTULOSE 20Gm/30ML SOLN PO SCH ×2 (10:00→21:25)
[2020-11-06] MEDS: ASPirin 81 mg TAB PO SCH (11:35)
[2020-11-06] MEDS: levoFLOXacin 500 MG TAB PO SCH (11:35)
[2020-11-06] MEDS: BENAZEPRIL HCL 10 MG TAB PO SCH (11:36)
[2020-11-06] MEDS: ATENOLOL 25 MG TAB PO SCH (11:37)
[2020-11-06] MEDS: FAMOTIDINE 20 MG TAB PO SCH (11:37)
[2020-11-06 13:00] VITALS: BP 129/76
[2020-11-06 17:00] VITALS: BP 109/62
[2020-11-06] MEDS: ATORVASTATIN 20 MG TAB PO SCH (21:26)
[2020-11-06] MEDS: INSULIN LANTUS (GLARGINE) 1 /0.01ml (100units/ml) SC SCH (21:26)
[2020-11-06 22:00] VITALS: BP 124/72
[2020-11-07 05:00] VITALS: BP 123/74
[2020-11-07] MEDS: ACCU-CHEK COMFORT CURVE STRIP VI SCH ×4 (06:32→22:04)
[2020-11-07] MEDS: InsuLIN REG 1unit/0.01ml Soln (100units/ml) SC SCH ×4 (06:33→22:04)
[2020-11-07 09:00] VITALS: BP 119/67
[2020-11-07] MEDS: LACTULOSE 20Gm/30ML SOLN PO SCH ×2 (10:00→22:00)
[2020-11-07 13:00] VITALS: BP 121/74
[2020-11-07] MEDS: ASPirin 81 mg TAB PO SCH (13:08)
[2020-11-07] MEDS: levoFLOXacin 500 MG TAB PO SCH (13:10)
[2020-11-07] MEDS: BENAZEPRIL HCL 10 MG TAB PO SCH (13:11)
[2020-11-07] MEDS: FAMOTIDINE 20 MG TAB PO SCH (13:11)
[2020-11-07] MEDS: ATENOLOL 25 MG TAB PO SCH (13:12)
[2020-11-07 16:48] VITALS: BP 120/74
[2020-11-07 22:00] VITALS: BP 131/74
[2020-11-07] MEDS: INSULIN LANTUS (GLARGINE) 1 /0.01ml (100units/ml) SC SCH (22:04)
[2020-11-07] MEDS: ATORVASTATIN 20 MG TAB PO SCH (22:05)
[2020-11-08 05:00] VITALS: BP 123/66
[2020-11-08] MEDS: ACCU-CHEK COMFORT CURVE STRIP VI SCH ×4 (06:12→23:16)
[2020-11-08] MEDS: InsuLIN REG 1unit/0.01ml Soln (100units/ml) SC SCH ×4 (06:12→23:15)
[2020-11-08 09:00] VITALS: BP 124/68
[2020-11-08] MEDS: ASPirin 81 mg TAB PO SCH (09:24)
[2020-11-08] MEDS: levoFLOXacin 500 MG TAB PO SCH (09:24)
[2020-11-08] MEDS: FAMOTIDINE 20 MG TAB PO SCH (09:24)
[2020-11-08] MEDS: ATENOLOL 25 MG TAB PO SCH (09:25)
[2020-11-08] MEDS: LACTULOSE 20Gm/30ML SOLN PO SCH (09:25)
[2020-11-08] MEDS: BENAZEPRIL HCL 10 MG TAB PO SCH (10:13)
[2020-11-08 13:00] VITALS: BP 125/71
[2020-11-08 17:00] VITALS: BP 108/68
[2020-11-08 22:00] VITALS: BP 106/60
[2020-11-08] MEDS: ATORVASTATIN 20 MG TAB PO SCH (23:13)
[2020-11-08] MEDS: INSULIN LANTUS (GLARGINE) 1 /0.01ml (100units/ml) SC SCH (23:16)
[2020-11-09 05:00] VITALS: BP 119/81
[2020-11-09] MEDS: ACCU-CHEK COMFORT CURVE STRIP VI SCH ×4 (06:51→21:09)
[2020-11-09] MEDS: InsuLIN REG 1unit/0.01ml Soln (100units/ml) SC SCH ×4 (06:52→21:09)
[2020-11-09 08:14] VITALS: BP 134/71
[2020-11-09] MEDS: levoFLOXacin 500 MG TAB PO SCH (10:02)
[2020-11-09] MEDS: FAMOTIDINE 20 MG TAB PO SCH (10:02)
[2020-11-09] MEDS: ASPirin 81 mg TAB PO SCH (10:02)
[2020-11-09] MEDS: BENAZEPRIL HCL 10 MG TAB PO SCH (10:03)
[2020-11-09] MEDS: ATENOLOL 25 MG TAB PO SCH (10:03)
[2020-11-09 12:59] VITALS: BP 121/63
[2020-11-09 17:00] VITALS: BP_SYST 120; BP_SYST 135; BP_DIAS 76; BP_DIAS 81
[2020-11-09] MEDS: ATORVASTATIN 20 MG TAB PO SCH (21:14)
[2020-11-09] MEDS: INSULIN LANTUS (GLARGINE) 1 /0.01ml (100units/ml) SC SCH (21:14)
[2020-11-09 22:22] VITALS: BP 124/72
[2020-11-10 05:17] VITALS: BP 126/63
[2020-11-10 05:55] LABS: BUN/Creatinine Ratio 21.3; Calcium 8.3 mg/dL (8.5-10.1); Potassium 4.4 mmol/L (3.5-5.1)
[2020-11-10 05:58] LABS: Basophils # (auto) 0 10 ^3/uL (0-0.2); Eosinophils # (auto) 0 10 ^3/uL (0-0.8); Hematocrit 35.4 % (41.0-53.0); Hemoglobin 11.7 g/dL (13.5-17.5); Lymphocytes # (auto) 1.5 10 ^3/uL (0.4-5.4); Lymphocytes % (auto) 31.3 % (10.0-50.0); Mean Corpuscular Hemoglobin 29.6 pg (28.0-32.0); Mean Corpuscular Hgb Conc. 33.2 g/dL (32.0-36.0); Mean Corpuscular Volume 89.3 fL (80.0-100.0); Monocytes # (auto) 0.6 10 ^3/uL (0-1.3); Monocytes % (auto) 11.8 % (0.0-12.0); Neutrophils # (auto) 2.7 10 ^3/uL (1.6-8.6); Neutrophils % (auto) 54.9 % (37.0-80.0); Nucleated Red Blood Cells % 0.2 %; Red Blood Cells 3.96 10^6/uL (4.5-5.90); Red Cell Distribution Width 15.1 % (11.8-14.3); White Blood Cell 4.9 10^3/uL (4.4-10.8)
[2020-11-10] MEDS: ACCU-CHEK COMFORT CURVE STRIP VI SCH ×4 (06:32→21:17)
[2020-11-10] MEDS: InsuLIN REG 1unit/0.01ml Soln (100units/ml) SC SCH ×4 (06:35→21:20)
[2020-11-10] MEDS: BENAZEPRIL HCL 10 MG TAB PO SCH (10:06)
[2020-11-10] MEDS: FAMOTIDINE 20 MG TAB PO SCH (10:06)
[2020-11-10] MEDS: ATENOLOL 25 MG TAB PO SCH (10:06)
[2020-11-10] MEDS: ASPirin 81 mg TAB PO SCH (10:06)
[2020-11-10 12:42] VITALS: BP 111/69
[2020-11-10 16:38] VITALS: BP 126/77
[2020-11-10] MEDS: ATORVASTATIN 20 MG TAB PO SCH (21:12)
[2020-11-10] MEDS: INSULIN LANTUS (GLARGINE) 1 /0.01ml (100units/ml) SC SCH (21:21)
[2020-11-10 22:04] VITALS: BP 120/71
[2020-11-11 05:30] VITALS: BP 106/69
[2020-11-11] MEDS: InsuLIN REG 1unit/0.01ml Soln (100units/ml) SC SCH ×4 (06:15→21:45)
[2020-11-11] MEDS: ACCU-CHEK COMFORT CURVE STRIP VI SCH ×4 (06:15→21:48)
[2020-11-11 09:00] VITALS: BP 130/74
[2020-11-11] MEDS: BENAZEPRIL HCL 10 MG TAB PO SCH (09:55)
[2020-11-11] MEDS: FAMOTIDINE 20 MG TAB PO SCH (09:55)
[2020-11-11] MEDS: ASPirin 81 mg TAB PO SCH (09:55)
[2020-11-11] MEDS: ATENOLOL 25 MG TAB PO SCH (09:56)
[2020-11-11 13:00] VITALS: BP 135/75
[2020-11-11 17:00] VITALS: BP 109/63
[2020-11-11] MEDS: ATORVASTATIN 20 MG TAB PO SCH (21:45)
[2020-11-11] MEDS: INSULIN LANTUS (GLARGINE) 1 /0.01ml (100units/ml) SC SCH (21:45)
[2020-11-11 22:00] VITALS: BP 100/62
[2020-11-12 05:00] VITALS: BP 166/93
[2020-11-12] MEDS: ACCU-CHEK COMFORT CURVE STRIP VI SCH ×4 (06:33→22:02)
[2020-11-12] MEDS: InsuLIN REG 1unit/0.01ml Soln (100units/ml) SC SCH ×4 (06:35→22:07)
[2020-11-12] MEDS: ASPirin 81 mg TAB PO SCH (09:01)
[2020-11-12] MEDS: BENAZEPRIL HCL 10 MG TAB PO SCH (09:01)
[2020-11-12] MEDS: FAMOTIDINE 20 MG TAB PO SCH (09:01)
[2020-11-12 09:02] VITALS: BP 111/74
[2020-11-12] MEDS: ATENOLOL 25 MG TAB PO SCH (09:02)
[2020-11-12 13:09] VITALS: BP 120/70
[2020-11-12 16:25] VITALS: BP 109/72
[2020-11-12 22:00] VITALS: BP 113/72
[2020-11-12] MEDS: ATORVASTATIN 20 MG TAB PO SCH (22:02)
[2020-11-12] MEDS: INSULIN LANTUS (GLARGINE) 1 /0.01ml (100units/ml) SC SCH (22:08)
[2020-11-13 05:26] VITALS: BP 112/71
[2020-11-13] MEDS: InsuLIN REG 1unit/0.01ml Soln (100units/ml) SC SCH ×4 (06:04→21:07)
[2020-11-13] MEDS: ACCU-CHEK COMFORT CURVE STRIP VI SCH ×4 (06:04→21:06)
[2020-11-13 09:00] VITALS: BP 128/73
[2020-11-13] MEDS: ASPirin 81 mg TAB PO SCH (10:48)
[2020-11-13] MEDS: ATENOLOL 25 MG TAB PO SCH (10:49)
[2020-11-13] MEDS: BENAZEPRIL HCL 10 MG TAB PO SCH (10:49)
[2020-11-13] MEDS: FAMOTIDINE 20 MG TAB PO SCH (10:49)
[2020-11-13 13:00] VITALS: BP 121/74
[2020-11-13 17:00] VITALS: BP 98/63
[2020-11-13] MEDS: ATORVASTATIN 20 MG TAB PO SCH (21:06)
[2020-11-13] MEDS: INSULIN LANTUS (GLARGINE) 1 /0.01ml (100units/ml) SC SCH (21:08)
[2020-11-13 22:00] VITALS: BP 118/68
[2020-11-14 05:00] VITALS: BP 117/70
[2020-11-14] MEDS: ACCU-CHEK COMFORT CURVE STRIP VI SCH ×4 (06:36→22:29)
[2020-11-14] MEDS: InsuLIN REG 1unit/0.01ml Soln (100units/ml) SC SCH ×4 (06:37→22:29)
[2020-11-14 09:00] VITALS: BP 115/68
[2020-11-14] MEDS: ASPirin 81 mg TAB PO SCH (09:38)
[2020-11-14] MEDS: BENAZEPRIL HCL 10 MG TAB PO SCH (09:39)
[2020-11-14] MEDS: FAMOTIDINE 20 MG TAB PO SCH (09:39)
[2020-11-14] MEDS: ATENOLOL 25 MG TAB PO SCH (09:40)
[2020-11-14 13:00] VITALS: BP 126/77
[2020-11-14 17:00] VITALS: BP 100/60
[2020-11-14 22:00] VITALS: BP 118/67
[2020-11-14] MEDS: INSULIN LANTUS (GLARGINE) 1 /0.01ml (100units/ml) SC SCH (22:28)
[2020-11-14] MEDS: ATORVASTATIN 20 MG TAB PO SCH (22:29)
[2020-11-15 05:00] VITALS: BP 129/74
[2020-11-15] MEDS: ACCU-CHEK COMFORT CURVE STRIP VI SCH ×3 (05:55→16:41)
[2020-11-15] MEDS: InsuLIN REG 1unit/0.01ml Soln (100units/ml) SC SCH ×3 (05:55→16:49)
[2020-11-15 08:30] VITALS: BP 142/76
[2020-11-15 09:00] VITALS: BP 142/76
[2020-11-15] MEDS: ATENOLOL 25 MG TAB PO SCH (09:32)
[2020-11-15] MEDS: BENAZEPRIL HCL 10 MG TAB PO SCH (09:33)
[2020-11-15] MEDS: ASPirin 81 mg TAB PO SCH (09:33)
[2020-11-15] MEDS: FAMOTIDINE 20 MG TAB PO SCH (09:33)
[2020-11-15 13:00] VITALS: BP 119/67
[2020-11-15 14:49] VITALS: BP 119/67
[2020-11-15 16:49] VITALS: BP 115/69
== END 2020-11-15 19:08 | disposition home health service (06) | DRG 64 ==
LOC: EDBD 10:26 → ER 10:26 → OVERFLOW 14:19 → WEST WING 19:16 → TELE-WESTW 11-02 19:39 → WEST WING 11-15 04:47
PROVIDERS: ADMIT Nurse Practitioner Acute Care; ATTEND Internal Medicine
PROC: 05HA33Z Insertion of Infusion Device into Left Brachial Vein, Percutaneous Approach (ICD-10-PCS; 2020-11-03)
PROC: B54NZZA Ultrasonography of Left Upper Extremity Veins, Guidance (ICD-10-PCS; 2020-11-03)
PROC: 07DR3ZX Extraction of Iliac Bone Marrow, Percutaneous Approach, Diagnostic (ICD-10-PCS; principal; 2020-11-09)
DX: I63.9 Cerebral infarction, unspecified (principal); G93.41 Metabolic encephalopathy; E43 Unspecified severe protein-calorie malnutrition; E87.1 Hypo-osmolality and hyponatremia; G95.89 Other specified diseases of spinal cord; R64 Cachexia; N39.0 Urinary tract infection, site not specified; D69.6 Thrombocytopenia, unspecified; E83.42 Hypomagnesemia; E86.0 Dehydration; G62.9 Polyneuropathy, unspecified; R29.6 Repeated falls; E78.5 Hyperlipidemia, unspecified; M48.02 Spinal stenosis, cervical region; K72.90 Hepatic failure, unspecified without coma; K74.60 Unspecified cirrhosis of liver; E11.22 Type 2 diabetes mellitus with diabetic chronic kidney disease; F03.90 Unspecified dementia, unspecified severity, without behavioral disturbance, psychotic disturbance, mood disturbance, and anxiety; I12.9 Hypertensive chronic kidney disease with stage 1 through stage 4 chronic kidney disease, or unspecified chronic kidney disease; I25.10 Atherosclerotic heart disease of native coronary artery without angina pectoris; Z20.822 Contact with and (suspected) exposure to COVID-19; M81.0 Age-related osteoporosis without current pathological fracture; N18.9 Chronic kidney disease, unspecified; S00.31XA Abrasion of nose, initial encounter; S00.81XA Abrasion of other part of head, initial encounter; Z96.641 Presence of right artificial hip joint; S43.401A Unspecified sprain of right shoulder joint, initial encounter; E11.65 Type 2 diabetes mellitus with hyperglycemia; W18.39XA Other fall on same level, initial encounter; M19.90 Unspecified osteoarthritis, unspecified site; R26.9 Unspecified abnormalities of gait and mobility; D47.2 Monoclonal gammopathy; Z79.4 Long term (current) use of insulin; Z79.82 Long term (current) use of aspirin; Z79.899 Other long term (current) drug therapy; Z86.73 Personal history of transient ischemic attack (TIA), and cerebral infarction without residual deficits; Y93.89 Activity, other specified; Y92.091 Bathroom in other non-institutional residence as the place of occurrence of the external cause; Y99.8 Other external cause status; Z68.23 Body mass index [BMI] 23.0-23.9, adult
CPT/HCPCS: 36415; 70450; 70551; 71045; 72125; 72141; 73020; 73200; 80048; 80053; 80061; 80320; 81001; 82140; 82565; 82607; 82746; 82784; 82962; 83036; 83615; 83735; 83883; 84132; 84155; 84165; 84443; 84484; 85007; 85025; 85027; 85049; 85060; 85097; 86147; 86334; 87040; 87086; 87426; 88185; 88291; 88341; 93005; 93306; 93886; 96361; 96365; 96366; 96372; 97110; 97116; 97163; 97530; G0378; J0696; J1815

== ENCOUNTER 2021-01-09 16:10 | Inpatient (IN) | payer OTHER ==
[~2021-01-09] VITALS: Ht 190.5 cm; Wt 69.0 kg
[~2021-01-09 16:10] MED LIST changes: +ATOR20TA PO; +INSLANTI SC; +LACT10SO70 PO; -SIMV-13 PO
[2021-01-09] MEDS ORDERED: INSULIN LANTUS (GLARGINE) 1 /0.01ml (100units/ml) SC ONE (16:30)
[2021-01-09] MEDS ORDERED: InsuLIN R (HUMAN) 100 UNITS in SODIUM CHL 0.9% 99 ML IV SCH (16:30)
[2021-01-09] MEDS ORDERED: DEXTROSE (50%) 50ML SYRG IV PRN ×2 (16:30→19:30)
[2021-01-09 17:00] LABS: Basophils # (auto) 0 10 ^3/uL (0-0.2); Basophils % (auto) 0.4 % (0.0-2.0); Eosinophils # (auto) 0.1 10 ^3/uL (0-0.8); Eosinophils % (auto) 1.4 % (0.0-7.0); Hematocrit 40.3 % (41.0-53.0); Hemoglobin 12.8 g/dL (13.5-17.5); Lymphocytes # (auto) 1.4 10 ^3/uL (0.4-5.4); Lymphocytes % (auto) 33.4 % (10.0-50.0); Mean Corpuscular Hemoglobin 29.2 pg (28.0-32.0); Mean Corpuscular Hgb Conc. 31.8 g/dL (32.0-36.0); Mean Corpuscular Volume 91.7 fL (80.0-100.0); Monocytes # (auto) 0.6 10 ^3/uL (0-1.3); Monocytes % (auto) 14.2 % (0.0-12.0); Neutrophils # (auto) 2.1 10 ^3/uL (1.6-8.6); Neutrophils % (auto) 50.6 % (37.0-80.0); Red Blood Cells 4.39 10^6/uL (4.5-5.90); Red Cell Distribution Width 14.1 % (11.8-14.3); White Blood Cell 4.1 10^3/uL (4.4-10.8)
[2021-01-09 17:18] LABS: Calcium 9.1 mg/dL (8.5-10.1); Magnesium 1.8 mg/dL (1.6-2.6); Potassium 3.9 mmol/L (3.5-5.1)
[2021-01-09 17:21] LABS: Lactic Acid w/Reflex 4.7 mmol/L (0.4-2.0)
[2021-01-09 17:26] LABS: BUN/Creatinine Ratio 8.1; Phosphorus 2.5 mg/dL (2.5-4.90)
[2021-01-09] MEDS: SODIUM CHLORIDE 0.9% 1,000 ML IV SCH ×2 (17:27→18:52)
[2021-01-09] MEDS: ACCU-CHEK COMFORT CURVE STRIP VI SCH ×3 (17:28→19:56)
[2021-01-09] MEDS ORDERED: InsuLIN REG 1unit/0.01ml Soln (100units/ml) IV ONE (19:30)
[2021-01-09] MEDS ORDERED: MORPHINE SULFATE INJECTION 2 MG/ML SYRG IV PRN (19:30)
[2021-01-09] MEDS ORDERED: NITROGLYCERIN 0.4 MG SL TAB SL PRN (19:30)
[2021-01-09] MEDS ORDERED: cefTRIAXone 1GM/50ML D5W 50 ML IV SCH (20:00)
[2021-01-09] MEDS: InsuLIN REG 1unit/0.01ml Soln (100units/ml) SC SCH (20:00)
[2021-01-09] MEDS ORDERED: SODIUM CHLORIDE 0.9% 1,000 ML IV SCH ×2 (20:30→22:30)
[2021-01-09] MEDS: LACTATED RINGER'S 1,000 ML IV SCH (20:48)
[2021-01-10] MEDS: ACCU-CHEK COMFORT CURVE STRIP VI SCH ×7 (00:01→22:36)
[2021-01-10] MEDS: LACTATED RINGER'S 1,000 ML IV SCH ×2 (03:26→11:47)
[2021-01-10] MEDS: InsuLIN REG 1unit/0.01ml Soln (100units/ml) SC SCH ×6 (04:10→22:46)
[2021-01-10 06:52] LABS: Basophils # (auto) 0 10 ^3/uL (0-0.2); Basophils % (auto) 0.6 % (0.0-2.0); Eosinophils # (auto) 0.1 10 ^3/uL (0-0.8); Hematocrit 41.5 % (41.0-53.0); Hemoglobin 13.5 g/dL (13.5-17.5); Lymphocytes # (auto) 1.7 10 ^3/uL (0.4-5.4); Lymphocytes % (auto) 44.6 % (10.0-50.0); Mean Corpuscular Hemoglobin 29.2 pg (28.0-32.0); Mean Corpuscular Hgb Conc. 32.5 g/dL (32.0-36.0); Mean Corpuscular Volume 89.7 fL (80.0-100.0); Monocytes # (auto) 0.4 10 ^3/uL (0-1.3); Monocytes % (auto) 10.4 % (0.0-12.0); Neutrophils # (auto) 1.6 10 ^3/uL (1.6-8.6); Neutrophils % (auto) 42.4 % (37.0-80.0); Nucleated Red Blood Cells % 0.3 %; Red Blood Cells 4.62 10^6/uL (4.5-5.90); Red Cell Distribution Width 13.9 % (11.8-14.3); White Blood Cell 3.8 10^3/uL (4.4-10.8)
[2021-01-10 07:23] LABS: Potassium 3.6 mmol/L (3.5-5.1)
[2021-01-10 07:34] LABS: Albumin 1.9 g/dL (3.4-5.0); BUN/Creatinine Ratio 10.6; Bilirubin, Total 0.7 mg/dL (0.2-1.0); Calcium 8.8 mg/dL (8.5-10.1); Magnesium 1.8 mg/dL (1.6-2.6)
[2021-01-10 07:58] LABS: Urine Bacteria FEW /hpf (None Seen); Urine Blood 3+ /uL (Negative); Urine WBC 2272 /hpf (0 - 3)
[2021-01-10 08:03] LABS: Urine Specific Gravity > 1.050 (1.001-1.035)
[2021-01-10] MEDS ORDERED: DEXTROSE (50%) 50ML SYRG IV PRN (09:30)
[2021-01-10] MEDS ORDERED: INSULIN LANTUS (GLARGINE) 1 /0.01ml (100units/ml) SC SCH (10:00)
[2021-01-10] MEDS ORDERED: BENAZEPRIL HCL 10 MG TAB PO SCH (10:00)
[2021-01-10] MEDS: ATORVASTATIN 20 MG TAB PO SCH (10:01)
[2021-01-10] MEDS ORDERED: SOD CHL 0.9%/ KCL 20MEQ 1,000 ML IV SCH (14:30)
[2021-01-10] MEDS ORDERED: cefTRIAXone 1GM/50ML D5W 50 ML IV ONE (14:30)
[2021-01-10] MEDS ORDERED: LIDOCAINE 2% JELLY 11ml (GLYDO) ONE (15:43)
[2021-01-10 16:26] LABS: INR 1.1 (0.9-1.15); Partial Thromboplastin Time 24.8 sec (23.6-33.0)
[2021-01-10] MEDS ORDERED: BUPIVACAINE 0.5% P/F INJ 10 ML VIAL ONE (16:34)
[2021-01-10] MEDS ORDERED: MIDAZOLAM HCL 2MG/2ML 2ml VIAL (1mg/ml) ONE ×2 (16:52→17:36)
[2021-01-10] MEDS ORDERED: HYDROmorphone HCL 2 MG/ML VL IV PRN (18:00)
[2021-01-10] MEDS ORDERED: MORPHINE SULFATE 4 MG/ML SYR/VIAL IV PRN (18:00)
[2021-01-10] MEDS ORDERED: ACCU-CHEK COMFORT CURVE STRIP VI ONE (18:00)
[2021-01-10] MEDS ORDERED: ONDANSETRON HCL 4 MG/2 ML VIAL IV PRN (18:00)
[2021-01-10] MEDS ORDERED: ROCURONIUM 10MG/ML 10ML VIAL IV ONE (20:08)
[2021-01-10 20:50] VITALS: BP 158/54
[2021-01-10 22:00] VITALS: BP 164/114
[2021-01-10 22:15] VITALS: BP 158/54
[2021-01-11 05:00] VITALS: BP 137/89
[2021-01-11] MEDS: ACCU-CHEK COMFORT CURVE STRIP VI SCH ×4 (05:56→21:36)
[2021-01-11] MEDS: InsuLIN REG 1unit/0.01ml Soln (100units/ml) SC SCH ×4 (05:58→21:39)
[2021-01-11 06:21] LABS: Potassium 3.4 mmol/L (3.5-5.1)
[2021-01-11 06:29] LABS: INR 1.07 (0.9-1.15); Partial Thromboplastin Time 26.2 sec (23.6-33.0)
[2021-01-11 06:30] LABS: BUN/Creatinine Ratio 14.8; Bilirubin, Total 0.8 mg/dL (0.2-1.0); Calcium 8.5 mg/dL (8.5-10.1); Magnesium 1.6 mg/dL (1.6-2.6); Phosphorus 2.6 mg/dL (2.5-4.90)
[2021-01-11 07:27] LABS: Basophils # (auto) 0 10 ^3/uL (0-0.2); Basophils % (auto) 0.6 % (0.0-2.0); Eosinophils # (auto) 0 10 ^3/uL (0-0.8); Eosinophils % (auto) 0.5 % (0.0-7.0); Hematocrit 38.8 % (41.0-53.0); Hemoglobin 12.9 g/dL (13.5-17.5); Lymphocytes # (auto) 1.6 10 ^3/uL (0.4-5.4); Lymphocytes % (auto) 31.2 % (10.0-50.0); Mean Corpuscular Hemoglobin 29.9 pg (28.0-32.0); Mean Corpuscular Hgb Conc. 33.2 g/dL (32.0-36.0); Mean Corpuscular Volume 90.2 fL (80.0-100.0); Monocytes # (auto) 0.4 10 ^3/uL (0-1.3); Monocytes % (auto) 7.2 % (0.0-12.0); Neutrophils % (auto) 60.5 % (37.0-80.0); Nucleated Red Blood Cells % 0.1 %
[2021-01-11 08:00] VITALS: BP 142/80
[2021-01-11 09:00] VITALS: BP_SYST 137; BP_SYST 142; BP_DIAS 80; BP_DIAS 86
[2021-01-11] MEDS: CEFTRIAXONE SODIUM 2 GM in D5W 5% 50 ML IV SCH (10:00)
[2021-01-11] MEDS: OXYBUTYNIN CHL 5 MG TAB PO SCH ×2 (10:00→21:40)
[2021-01-11] MEDS: BENAZEPRIL HCL 10 MG TAB PO SCH (10:00)
[2021-01-11] MEDS: ATORVASTATIN 20 MG TAB PO SCH (10:00)
[2021-01-11] MEDS ORDERED: GASTROGRAFIN 120 ML SOL ONE (12:27)
[2021-01-11 13:00] VITALS: BP 135/82
[2021-01-11] MEDS ORDERED: POTASSIUM CHL 20 Meq TABLET PO ONE (16:00)
[2021-01-11] MEDS ORDERED: MAGNESIUM SULFATE 1GM/100ML 100 ML IV ONE (16:00)
[2021-01-11] MEDS: SOD CHL 0.9%/ KCL 20MEQ 1,000 ML IV SCH (17:13)
[2021-01-11 21:47] VITALS: BP 153/86
[2021-01-12 04:51] VITALS: BP 137/78
[2021-01-12] MEDS: ACCU-CHEK COMFORT CURVE STRIP VI SCH ×4 (06:19→21:52)
[2021-01-12] MEDS: InsuLIN REG 1unit/0.01ml Soln (100units/ml) SC SCH ×4 (06:20→22:00)
[2021-01-12] MEDS: SOD CHL 0.9%/ KCL 20MEQ 1,000 ML IV SCH (06:28)
[2021-01-12 08:00] VITALS: BP 141/81
[2021-01-12] MEDS ORDERED: GLYCOPYRROLATE 0.2 MG/ML 1ML VIAL ONE (08:19)
[2021-01-12] MEDS ORDERED: MIDAZOLAM HCL 2MG/2ML 2ml VIAL (1mg/ml) ONE (08:19)
[2021-01-12] MEDS ORDERED: ONDANSETRON HCL 4 MG/2 ML VIAL ONE (08:19)
[2021-01-12] MEDS ORDERED: KETAMINE HCL 0 ML ONE (08:19)
[2021-01-12] MEDS ORDERED: ePHEDrine SULFATE 50 MG/ML AMP ONE (08:19)
[2021-01-12] MEDS ORDERED: PROPOFOL 10 MG/ML 20 ML IV ONE (08:19)
[2021-01-12] MEDS ORDERED: LIDOCAINE 2% (LOCAL ANESTH.) PF 5ml SDV ONE (08:19)
[2021-01-12] MEDS ORDERED: ceFAZolin 1GM/50ML 100 ML IV ONE (08:22)
[2021-01-12] MEDS ORDERED: BUPIVACAINE W/ EPINEPH 0.25% INJ 50ML MDV ONE (09:21)
[2021-01-12] MEDS: ATORVASTATIN 20 MG TAB PO SCH (09:40)
[2021-01-12] MEDS: BENAZEPRIL HCL 10 MG TAB PO SCH (09:40)
[2021-01-12] MEDS: OXYBUTYNIN CHL 5 MG TAB PO SCH ×2 (09:40→21:52)
[2021-01-12] MEDS: CEFTRIAXONE SODIUM 2 GM in D5W 5% 50 ML IV SCH (09:40)
[2021-01-12] MEDS ORDERED: ONDANSETRON HCL 4 MG/2 ML VIAL IV PRN (11:00)
[2021-01-12] MEDS ORDERED: HYDROmorphone HCL 2 MG/ML VL IV PRN (11:00)
[2021-01-12] MEDS ORDERED: ACCU-CHEK COMFORT CURVE STRIP VI ONE (11:00)
[2021-01-12] MEDS ORDERED: KETAMINE HCL 10 ML ONE (11:11)
[2021-01-12 12:00] VITALS: BP 141/89
[2021-01-12 12:18] LABS: Basophils # (auto) 0 10 ^3/uL (0-0.2); Basophils % (auto) 0.3 % (0.0-2.0); Eosinophils # (auto) 0 10 ^3/uL (0-0.8); Eosinophils % (auto) 0.8 % (0.0-7.0); Hematocrit 35.7 % (41.0-53.0); Hemoglobin 11.2 g/dL (13.5-17.5); Lymphocytes # (auto) 1.6 10 ^3/uL (0.4-5.4); Lymphocytes % (auto) 38.6 % (10.0-50.0); Mean Corpuscular Hemoglobin 29.6 pg (28.0-32.0); Mean Corpuscular Hgb Conc. 31.4 g/dL (32.0-36.0); Mean Corpuscular Volume 94.3 fL (80.0-100.0); Monocytes # (auto) 0.4 10 ^3/uL (0-1.3); Monocytes % (auto) 9.3 % (0.0-12.0); Neutrophils # (auto) 2.1 10 ^3/uL (1.6-8.6); Nucleated Red Blood Cells % 0.3 %; Red Blood Cells 3.78 10^6/uL (4.5-5.90); Red Cell Distribution Width 14.6 % (11.8-14.3); White Blood Cell 4.2 10^3/uL (4.4-10.8)
[2021-01-12 12:25] LABS: Magnesium 1.8 mg/dL (1.6-2.6); Potassium 3.9 mmol/L (3.5-5.1)
[2021-01-12] MEDS ORDERED: MAGNESIUM SULFATE 1GM/100ML 100 ML IV ONE (15:15)
[2021-01-12] MEDS ORDERED: POTASSIUM CHL 20 Meq TABLET PO ONE (15:15)
[2021-01-12 16:00] VITALS: BP 150/90
[2021-01-12] MEDS ORDERED: hydrALAZINE HCL 20 MG/ML VL IV PRN (16:00)
[2021-01-12] MEDS: HYDROcodone-ACET 5/325MG TAB PO PRN (17:13)
[2021-01-12 22:00] VITALS: BP 139/77
[2021-01-12] MEDS ORDERED: INSULIN LANTUS (GLARGINE) 1 /0.01ml (100units/ml) SC SCH (22:00)
[2021-01-13 05:00] VITALS: BP 140/80
[2021-01-13] MEDS: SOD CHL 0.9%/ KCL 20MEQ 1,000 ML IV SCH (06:00)
[2021-01-13] MEDS: InsuLIN REG 1unit/0.01ml Soln (100units/ml) SC SCH ×2 (06:01→11:30)
[2021-01-13] MEDS: ACCU-CHEK COMFORT CURVE STRIP VI SCH ×2 (06:01→11:36)
[2021-01-13 07:09] LABS: Calcium 8.8 mg/dL (8.5-10.1); Magnesium 1.8 mg/dL (1.6-2.6); Potassium 4.4 mmol/L (3.5-5.1)
[2021-01-13 08:00] VITALS: BP 131/72
[2021-01-13 09:00] VITALS: BP 131/72
[2021-01-13] MEDS: ATORVASTATIN 20 MG TAB PO SCH (09:40)
[2021-01-13] MEDS: CEFTRIAXONE SODIUM 2 GM in D5W 5% 50 ML IV SCH (09:40)
[2021-01-13] MEDS: OXYBUTYNIN CHL 5 MG TAB PO SCH (09:40)
[2021-01-13] MEDS: BENAZEPRIL HCL 10 MG TAB PO SCH (09:40)
[2021-01-13] MEDS: HYDROcodone-ACET 5/325MG TAB PO PRN (09:41)
[2021-01-13 10:29] LABS: Basophils # (auto) 0 10 ^3/uL (0-0.2); Basophils % (auto) 0.1 % (0.0-2.0); Eosinophils # (auto) 0 10 ^3/uL (0-0.8); Eosinophils % (auto) 0.1 % (0.0-7.0); Hemoglobin 12.2 g/dL (13.5-17.5); Lymphocytes # (auto) 1.6 10 ^3/uL (0.4-5.4); Lymphocytes % (auto) 19.3 % (10.0-50.0); Mean Corpuscular Hemoglobin 30.2 pg (28.0-32.0); Mean Corpuscular Volume 91.4 fL (80.0-100.0); Monocytes # (auto) 0.9 10 ^3/uL (0-1.3); Monocytes % (auto) 11.1 % (0.0-12.0); Neutrophils # (auto) 5.9 10 ^3/uL (1.6-8.6); Neutrophils % (auto) 69.4 % (37.0-80.0); Nucleated Red Blood Cells % 0.1 %; Red Blood Cells 4.04 10^6/uL (4.5-5.90); Red Cell Distribution Width 14.1 % (11.8-14.3); White Blood Cell 8.5 10^3/uL (4.4-10.8)
[2021-01-13 12:51] VITALS: BP 132/92
[2021-01-13] MEDS ORDERED: MAGNESIUM SULFATE 1GM/100ML 100 ML IV ONE (13:00)
[2021-01-13] MEDS ORDERED: OXYB5TAB61 PO (13:01)
[2021-01-13] MEDS ORDERED: LEVO500T31 PO (13:01)
[2021-01-13 14:27] VITALS: BP 131/72
[2021-01-14] MEDS ORDERED: cefTRIAXone 1GM/50ML D5W 50 ML IV SCH (09:00)
== END 2021-01-13 16:55 | disposition home health service (06) | DRG 668 ==
LOC: ER 16:10 → EDBD 16:10 → TELE 19:30 → TELE-CENTR 01-10 20:50
PROVIDERS: ADMIT Nurse Practitioner Acute Care; ATTEND Internal Medicine
PROC: 0T5B8ZZ Destruction of Bladder, Via Natural or Artificial Opening Endoscopic (ICD-10-PCS; 2021-01-10)
PROC: 0T9B70Z Drainage of Bladder with Drainage Device, Via Natural or Artificial Opening (ICD-10-PCS; 2021-01-10)
PROC: 0TBB8ZX Excision of Bladder, Via Natural or Artificial Opening Endoscopic, Diagnostic (ICD-10-PCS; principal; 2021-01-10 17:07)
PROC: 0YQ60ZZ Repair Left Inguinal Region, Open Approach (ICD-10-PCS; 2021-01-12)
DX: N32.89 Other specified disorders of bladder (principal); E43 Unspecified severe protein-calorie malnutrition; N17.0 Acute kidney failure with tubular necrosis; K40.30 Unilateral inguinal hernia, with obstruction, without gangrene, not specified as recurrent; N10 Acute pyelonephritis; E11.65 Type 2 diabetes mellitus with hyperglycemia; I10 Essential (primary) hypertension; N18.31 Chronic kidney disease, stage 3a; E86.0 Dehydration; E87.6 Hypokalemia; D69.59 Other secondary thrombocytopenia; K74.60 Unspecified cirrhosis of liver; E11.22 Type 2 diabetes mellitus with diabetic chronic kidney disease; Z20.822 Contact with and (suspected) exposure to COVID-19; E78.5 Hyperlipidemia, unspecified; F03.90 Unspecified dementia, unspecified severity, without behavioral disturbance, psychotic disturbance, mood disturbance, and anxiety; I25.10 Atherosclerotic heart disease of native coronary artery without angina pectoris; R77.8 Other specified abnormalities of plasma proteins; K81.1 Chronic cholecystitis; R29.6 Repeated falls; R31.0 Gross hematuria; Z79.4 Long term (current) use of insulin; Z91.14 Patient's other noncompliance with medication regimen; Z79.82 Long term (current) use of aspirin; Z79.899 Other long term (current) drug therapy; Z82.49 Family history of ischemic heart disease and other diseases of the circulatory system; Z83.3 Family history of diabetes mellitus; Z86.73 Personal history of transient ischemic attack (TIA), and cerebral infarction without residual deficits; Z87.891 Personal history of nicotine dependence; Z91.19 Patient's noncompliance with other medical treatment and regimen
CPT/HCPCS: 36415; 70450; 71045; 74176; 74250; 80048; 80053; 80061; 81001; 82010; 82306; 82550; 82962; 83036; 83605; 83735; 83880; 83930; 84100; 84132; 84154; 84443; 84484; 84550; 85025; 85610; 85730; 87040; 87086; 87426; 88302; 93005; 96361; 96365; G0378; J0690; J0696; J1815; J2001; J2250; J2405; J2704; J3490; J7060

== ENCOUNTER 2021-01-29 18:14 | Inpatient (IN) | payer OTHER ==
[2021-01-28] MEDS: ACCU-CHEK COMFORT CURVE STRIP VI SCH ×2 (21:36→23:06)
[2021-01-28] MEDS: InsuLIN R (HUMAN) 100 UNITS in SODIUM CHL 0.9% 99 ML IV SCH (21:36)
[2021-01-28] MEDS: SODIUM CHLORIDE 0.9% 1,000 ML IV SCH (21:42)
[~2021-01-29] VITALS: Ht 190.5 cm; Wt 68.8 kg
[~2021-01-29 18:14] MED LIST changes: -ASPI81CH43 PO; +LEVO500T31 PO; +OXYB5TAB61 PO
[2021-01-29] MEDS ORDERED: SODIUM CHLORIDE 0.9% 1,000 ML IV ONE (18:30)
[2021-01-29 19:22] LABS: Hematocrit 34.5 % (41.0-53.0); Hemoglobin 11.3 g/dL (13.5-17.5); Mean Corpuscular Hgb Conc. 32.8 g/dL (32.0-36.0); Mean Corpuscular Volume 91.4 fL (80.0-100.0); Red Blood Cells 3.78 10^6/uL (4.5-5.90); Red Cell Distribution Width 14.5 % (11.8-14.3); White Blood Cell 3.1 10^3/uL (4.4-10.8)
[2021-01-29 19:39] LABS: Albumin 1.9 g/dL (3.4-5.0); Calcium 9.4 mg/dL (8.5-10.1); Magnesium 1.7 mg/dL (1.6-2.6); Potassium 4.1 mmol/L (3.5-5.1)
[2021-01-29 19:41] LABS: Band Neutrophils % (manual) 0; Basophils % (manual) 0 (0.0-2.0); Blast Cells 0; Metamyelocytes % 0; Myelocytes % 0; Promyelocytes % 0; Reactive Lymphocytes 0
[2021-01-29 19:43] LABS: BUN/Creatinine Ratio 9.4; Bilirubin, Total 0.6 mg/dL (0.2-1.0)
[2021-01-29 20:00] LABS: Urine Bacteria MANY /hpf (None Seen); Urine Blood 3+ /uL (Negative); Urine Budding Yeast MANY /hpf (None Seen); Urine Mucus FEW (None Seen); Urine Specific Gravity 1.025 (1.001-1.035); Urine Sperm PRESENT /hpf (None Seen); Urine WBC 660 /hpf (0 - 3); Urine WBC Clumps PRESENT /hpf (None Seen)
[2021-01-29] MEDS ORDERED: CEFTRIAXONE SODIUM 2 GM in D5W 5% 50 ML IV ONE (20:15)
[2021-01-29] MEDS ORDERED: DEXTROSE (50%) 50ML SYRG IV PRN (20:15)
[2021-01-29] MEDS ORDERED: InsuLIN REG 1unit/0.01ml Soln (100units/ml) ONE (21:16)
[2021-01-29] MEDS: SODIUM CHLORIDE 0.9% 1,000 ML IV SCH (21:42)
[2021-01-29 22:19] LABS: Eosinophils % (manual) 1 (0-7); Lymphocytes % (manual) 38 (10.0-50.0); Monocytes % (manual) 16 (0-12)
[2021-01-29 22:21] LABS: Calcium 9.4 mg/dL (8.5-10.1)
[2021-01-29 22:23] LABS: BUN/Creatinine Ratio 10.5
[2021-01-29] MEDS ORDERED: cefTRIAXone SOD 1,000 MG VL ONE (22:27)
[2021-01-29] MEDS ORDERED: DOCUSATE SOD 100 MG CAP PO PRN (22:45)
[2021-01-29] MEDS ORDERED: ONDANSETRON HCL 4 MG/2 ML VIAL IV PRN (22:45)
[2021-01-29] MEDS ORDERED: ACETAMINOPHEN 325 MG TAB PO PRN (22:45)
[2021-01-30] MEDS ORDERED: NITROGLYCERIN 0.4 MG SL TAB SL PRN
[2021-01-30] MEDS ORDERED: SODIUM CHLORIDE 0.9% 1,000 ML IV SCH ×2 (00:15→02:15)
[2021-01-30] MEDS: ACCU-CHEK COMFORT CURVE STRIP VI SCH ×7 (00:36→18:01)
[2021-01-30] MEDS ORDERED: SODIUM CHLORIDE 0.9% 1,000 ML IV STA (01:23)
[2021-01-30 02:32] LABS: BUN/Creatinine Ratio 11.8; Calcium 8.9 mg/dL (8.5-10.1); Potassium 4.6 mmol/L (3.5-5.1)
[2021-01-30] MEDS: InsuLIN R (HUMAN) 100 UNITS in SODIUM CHL 0.9% 99 ML IV SCH (03:50)
[2021-01-30] MEDS ORDERED: DEXTROSE (50%) 50ML SYRG IV PRN (06:00)
[2021-01-30] MEDS: InsuLIN REG 1unit/0.01ml Soln (100units/ml) SC SCH ×3 (07:06→18:00)
[2021-01-30] MEDS: SODIUM CHLORIDE 0.9% 1,000 ML IV SCH ×2 (07:24→16:11)
[2021-01-30 07:59] LABS: Basophils # (auto) 0 10 ^3/uL (0-0.2); Basophils % (auto) 0.6 % (0.0-2.0); Eosinophils # (auto) 0.1 10 ^3/uL (0-0.8); Hematocrit 32.6 % (41.0-53.0); Hemoglobin 10.9 g/dL (13.5-17.5); Lymphocytes # (auto) 1.1 10 ^3/uL (0.4-5.4); Lymphocytes % (auto) 36.7 % (10.0-50.0); Mean Corpuscular Hemoglobin 29.7 pg (28.0-32.0); Mean Corpuscular Hgb Conc. 33.3 g/dL (32.0-36.0); Mean Corpuscular Volume 89.2 fL (80.0-100.0); Monocytes # (auto) 0.3 10 ^3/uL (0-1.3); Monocytes % (auto) 10.1 % (0.0-12.0); Neutrophils # (auto) 1.5 10 ^3/uL (1.6-8.6); Neutrophils % (auto) 48.6 % (37.0-80.0); Nucleated Red Blood Cells % 0.2 %; Red Blood Cells 3.66 10^6/uL (4.5-5.90); Red Cell Distribution Width 14.1 % (11.8-14.3); White Blood Cell 3.1 10^3/uL (4.4-10.8)
[2021-01-30 08:01] LABS: Albumin 1.6 g/dL (3.4-5.0); Calcium 8.4 mg/dL (8.5-10.1); Potassium 3.7 mmol/L (3.5-5.1)
[2021-01-30 08:04] LABS: BUN/Creatinine Ratio 14.3; Bilirubin, Total 0.7 mg/dL (0.2-1.0); Total Protein 6.1 g/dL (6.4-8.2)
[2021-01-30] MEDS: ZINC SULFATE 220mg CAP or TAB PO SCH (09:59)
[2021-01-30] MEDS: FAMOTIDINE (10MG/ML) 2ML VL IV SCH (09:59)
[2021-01-30] MEDS: MULTIPLE VITAMIN TAB PO SCH (09:59)
[2021-01-30] MEDS: ASCORBIC ACID 500 MG TAB PO SCH ×2 (10:00→22:25)
[2021-01-30] MEDS ORDERED: AZITHROMYCIN 500MG/ 250ML 250 ML IV ONE (10:15)
[2021-01-30 14:07] LABS: BUN/Creatinine Ratio 15.4; Calcium 8.1 mg/dL (8.5-10.1); Potassium 4.1 mmol/L (3.5-5.1)
[2021-01-30] MEDS ORDERED: cefTRIAXone 1GM/50ML D5W 50 ML IV SCH (21:00)
[2021-01-31] MEDS: ACCU-CHEK COMFORT CURVE STRIP VI SCH ×4 (00:46→18:19)
[2021-01-31] MEDS: InsuLIN REG 1unit/0.01ml Soln (100units/ml) SC SCH ×4 (00:47→18:00)
[2021-01-31] MEDS: SODIUM CHLORIDE 0.9% 1,000 ML IV SCH ×3 (02:37→16:00)
[2021-01-31 08:58] LABS: Basophils # (auto) 0 10 ^3/uL (0-0.2); Basophils % (auto) 0.6 % (0.0-2.0); Eosinophils # (auto) 0 10 ^3/uL (0-0.8); Hematocrit 35.7 % (41.0-53.0); Hemoglobin 11.6 g/dL (13.5-17.5); Lymphocytes # (auto) 1.9 10 ^3/uL (0.4-5.4); Lymphocytes % (auto) 42.1 % (10.0-50.0); Mean Corpuscular Hgb Conc. 32.5 g/dL (32.0-36.0); Mean Corpuscular Volume 89.2 fL (80.0-100.0); Monocytes # (auto) 0.6 10 ^3/uL (0-1.3); Monocytes % (auto) 12.3 % (0.0-12.0); Nucleated Red Blood Cells % 0.1 %; Red Blood Cells 4.01 10^6/uL (4.5-5.90); White Blood Cell 4.5 10^3/uL (4.4-10.8)
[2021-01-31 09:01] LABS: Albumin 1.7 g/dL (3.4-5.0); Potassium 4.1 mmol/L (3.5-5.1)
[2021-01-31 09:08] LABS: Bilirubin, Total 0.9 mg/dL (0.2-1.0); Total Protein 6.1 g/dL (6.4-8.2)
[2021-01-31] MEDS ORDERED: AZITHROMYCIN 500MG/ 250ML 250 ML IV SCH (10:00)
[2021-01-31] MEDS: MULTIPLE VITAMIN TAB PO SCH (11:58)
[2021-01-31] MEDS: ZINC SULFATE 220mg CAP or TAB PO SCH (11:58)
[2021-01-31] MEDS: FAMOTIDINE (10MG/ML) 2ML VL IV SCH (11:58)
[2021-01-31] MEDS: ASCORBIC ACID 500 MG TAB PO SCH ×2 (11:59→20:14)
[2021-01-31] MEDS ORDERED: MAGNESIUM SULFATE 1GM/100ML 100 ML IV ONE (13:45)
[2021-01-31] MEDS ORDERED: LACTULOSE 20Gm/30ML SOLN PO PRN (14:45)
[2021-01-31] MEDS ORDERED: hydrALAZINE HCL 20 MG/ML VL IV PRN (14:45)
[2021-01-31] MEDS ORDERED: LIDOCAINE 2% JELLY 11ml (GLYDO) UR ONE (14:45)
[2021-01-31] MEDS ORDERED: CLINDAMYCIN 600MG IV 50 ML IV ONE (15:30)
[2021-01-31 16:24] VITALS: BP 110/94
[2021-01-31] MEDS ORDERED: CEFEPIME 1 GM in SODIUM CHL 0.9% 50 ML IV ONE (16:30)
[2021-01-31] MEDS: IPRATROPIUM BROM 0.5 MG/2.5ML INH SOL NEB SCH ×2 (18:23→22:00)
[2021-01-31] MEDS: CLINDAMYCIN 600MG IV 50 ML IV SCH (20:13)
[2021-01-31] MEDS: ATORVASTATIN 20 MG TAB PO SCH (20:13)
[2021-01-31] MEDS: HYDROcodone-ACET 5/325MG TAB PO PRN (20:14)
[2021-01-31] MEDS: DOCUSATE SOD 100 MG CAP PO SCH (20:14)
[2021-01-31 22:00] VITALS: BP 143/84
[2021-01-31] MEDS ORDERED: FAMOTIDINE (10MG/ML) 2ML VL IV SCH (22:00)
[2021-01-31] MEDS ORDERED: IPRATROPIUM BROM 0.5 MG/2.5ML INH SOL NEB PRN (23:45)
[2021-02-01] MEDS: OXYBUTYNIN CHL 5 MG TAB PO SCH ×3 (00:42→22:57)
[2021-02-01 04:37] VITALS: BP 143/84
[2021-02-01 05:00] VITALS: BP 140/78
[2021-02-01] MEDS: CEFEPIME 1 GM in SODIUM CHL 0.9% 50 ML IV SCH ×3 (05:53→22:56)
[2021-02-01] MEDS: ACCU-CHEK COMFORT CURVE STRIP VI SCH ×4 (05:54→18:19)
[2021-02-01] MEDS: InsuLIN REG 1unit/0.01ml Soln (100units/ml) SC SCH ×4 (06:01→18:24)
[2021-02-01] MEDS: CLINDAMYCIN 600MG IV 50 ML IV SCH (06:07)
[2021-02-01 06:43] LABS: INR 1.13 (0.9-1.15); Partial Thromboplastin Time 26.1 sec (23.6-33.0)
[2021-02-01 06:48] LABS: Potassium 3.9 mmol/L (3.5-5.1)
[2021-02-01 06:50] LABS: Basophils # (auto) 0 10 ^3/uL (0-0.2); Basophils % (auto) 0.3 % (0.0-2.0); Eosinophils # (auto) 0.1 10 ^3/uL (0-0.8); Eosinophils % (auto) 2.1 % (0.0-7.0); Hematocrit 34.4 % (41.0-53.0); Lymphocytes # (auto) 2.1 10 ^3/uL (0.4-5.4); Lymphocytes % (auto) 42.1 % (10.0-50.0); Mean Corpuscular Hemoglobin 28.3 pg (28.0-32.0); Mean Corpuscular Hgb Conc. 31.9 g/dL (32.0-36.0); Mean Corpuscular Volume 88.8 fL (80.0-100.0); Monocytes # (auto) 0.8 10 ^3/uL (0-1.3); Monocytes % (auto) 15.5 % (0.0-12.0); Nucleated Red Blood Cells % 0.5 %; Red Blood Cells 3.88 10^6/uL (4.5-5.90); Red Cell Distribution Width 14.2 % (11.8-14.3); White Blood Cell 5.1 10^3/uL (4.4-10.8)
[2021-02-01 06:59] LABS: Albumin 1.7 g/dL (3.4-5.0); BUN/Creatinine Ratio 17.4; Bilirubin, Total 0.7 mg/dL (0.2-1.0); Calcium 7.9 mg/dL (8.5-10.1); Magnesium 1.5 mg/dL (1.6-2.6); Phosphorus 2.1 mg/dL (2.5-4.90); Total Protein 5.8 g/dL (6.4-8.2)
[2021-02-01 09:00] VITALS: BP 125/79
[2021-02-01] MEDS ORDERED: ENOXAPARIN SOD 30 MG/0.3 ML SYRINGE SC SCH (10:00)
[2021-02-01] MEDS: DOCUSATE SOD 100 MG CAP PO SCH ×2 (10:45→22:58)
[2021-02-01] MEDS: ZINC SULFATE 220mg CAP or TAB PO SCH (10:45)
[2021-02-01] MEDS: MULTIPLE VITAMIN TAB PO SCH (10:46)
[2021-02-01] MEDS: ASCORBIC ACID 500 MG TAB PO SCH (10:47)
[2021-02-01] MEDS: BENAZEPRIL HCL 10 MG TAB PO SCH (10:48)
[2021-02-01] MEDS: ASPirin 81 mg TAB PO SCH (11:10)
[2021-02-01] MEDS ORDERED: DEXTROSE (50%) 50ML SYRG IV PRN (11:45)
[2021-02-01 13:00] VITALS: BP 143/88
[2021-02-01 17:00] VITALS: BP 128/71
[2021-02-01] MEDS: SODIUM CHLORIDE 0.9% 1,000 ML IV SCH (18:24)
[2021-02-01 21:05] LABS: Urine Bacteria FEW /hpf (None Seen); Urine Blood 3+ /uL (Negative); Urine Budding Yeast MANY /hpf (None Seen); Urine Specific Gravity 1.016 (1.001-1.035); Urine WBC 671 /hpf (0 - 3); Urine WBC Clumps PRESENT /hpf (None Seen)
[2021-02-01 22:00] VITALS: BP 139/79
[2021-02-01] MEDS ORDERED: INSULIN LANTUS (GLARGINE) 1 /0.01ml (100units/ml) SC SCH (22:00)
[2021-02-01] MEDS: ATORVASTATIN 20 MG TAB PO SCH (22:57)
[2021-02-01] MEDS: levETIRAcetam 500 MG TAB PO SCH (22:58)
[2021-02-02] MEDS: ACCU-CHEK COMFORT CURVE STRIP VI SCH ×4 (00:23→17:54)
[2021-02-02] MEDS: InsuLIN REG 1unit/0.01ml Soln (100units/ml) SC SCH ×4 (00:25→18:05)
[2021-02-02 05:00] VITALS: BP 139/75
[2021-02-02] MEDS: SODIUM CHLORIDE 0.9% 1,000 ML IV SCH (06:45)
[2021-02-02] MEDS: CEFEPIME 1 GM in SODIUM CHL 0.9% 50 ML IV SCH (06:56)
[2021-02-02 09:20] VITALS: BP 137/83
[2021-02-02] MEDS: levETIRAcetam 500 MG TAB PO SCH ×2 (10:20→22:03)
[2021-02-02] MEDS: ASPirin 81 mg TAB PO SCH (10:20)
[2021-02-02] MEDS: BENAZEPRIL HCL 10 MG TAB PO SCH (10:20)
[2021-02-02] MEDS: MULTIPLE VITAMIN TAB PO SCH (10:20)
[2021-02-02] MEDS: ZINC SULFATE 220mg CAP or TAB PO SCH (10:21)
[2021-02-02] MEDS: DOCUSATE SOD 100 MG CAP PO SCH ×2 (10:21→22:02)
[2021-02-02] MEDS: OXYBUTYNIN CHL 5 MG TAB PO SCH ×2 (10:21→22:03)
[2021-02-02] MEDS ORDERED: ERTAPENEM SOD INJ 1 GM in SODIUM CHL 0.9% 50 ML IV ONE (11:15)
[2021-02-02] MEDS ORDERED: MAGNESIUM SULFATE 1GM/100ML 100 ML IV ONE (11:15)
[2021-02-02 13:00] VITALS: BP 131/83
[2021-02-02 16:45] VITALS: BP 138/94
[2021-02-02 22:00] VITALS: BP 145/77
[2021-02-02] MEDS ORDERED: INSULIN LANTUS (GLARGINE) 1 /0.01ml (100units/ml) SC SCH (22:00)
[2021-02-02] MEDS: ATORVASTATIN 20 MG TAB PO SCH (22:03)
[2021-02-03] MEDS: ACCU-CHEK COMFORT CURVE STRIP VI SCH ×4 (00:05→18:00)
[2021-02-03] MEDS: InsuLIN REG 1unit/0.01ml Soln (100units/ml) SC SCH ×4 (00:10→18:35)
[2021-02-03 05:00] VITALS: BP 129/83
[2021-02-03 09:14] LABS: BUN/Creatinine Ratio 15.4; Calcium 8.4 mg/dL (8.5-10.1); Magnesium 1.3 mg/dL (1.6-2.6); Potassium 4.1 mmol/L (3.5-5.1)
[2021-02-03 09:19] VITALS: BP 142/73
[2021-02-03] MEDS ORDERED: ERTAPENEM SOD INJ 1 GM in SODIUM CHL 0.9% 50 ML IV SCH (10:00)
[2021-02-03] MEDS: ZINC SULFATE 220mg CAP or TAB PO SCH (10:21)
[2021-02-03] MEDS: ASPirin 81 mg TAB PO SCH (10:21)
[2021-02-03] MEDS: levETIRAcetam 500 MG TAB PO SCH (10:22)
[2021-02-03] MEDS: OXYBUTYNIN CHL 5 MG TAB PO SCH (10:22)
[2021-02-03] MEDS: DOCUSATE SOD 100 MG CAP PO SCH (10:22)
[2021-02-03] MEDS: BENAZEPRIL HCL 10 MG TAB PO SCH (10:23)
[2021-02-03] MEDS: MULTIPLE VITAMIN TAB PO SCH (10:23)
[2021-02-03] MEDS: HYDROcodone-ACET 5/325MG TAB PO PRN (10:40)
[2021-02-03] MEDS ORDERED: FLUCONAZOLE 200MG/100ML 100 ML IV ONE (11:45)
[2021-02-03 12:56] VITALS: BP 153/88
[2021-02-03 16:58] VITALS: BP 142/91
[2021-02-03 17:48] VITALS: BP 142/91
[2021-02-04] MEDS ORDERED: FLUCONAZOLE 200MG/100ML 100 ML IV SCH (10:00)
== END 2021-02-03 18:57 | disposition home health service (06) | DRG 100 ==
LOC: EDBD 18:14 → ER 18:16 → OVERFLOW 23:47 → TELE-CENTR 01-31 14:55
PROVIDERS: ADMIT Nurse Practitioner Family; ATTEND Internal Medicine
DX: G40.409 Other generalized epilepsy and epileptic syndromes, not intractable, without status epilepticus (principal); J69.0 Pneumonitis due to inhalation of food and vomit; I21.A1 Myocardial infarction type 2; J96.22 Acute and chronic respiratory failure with hypercapnia; J96.21 Acute and chronic respiratory failure with hypoxia; D61.818 Other pancytopenia; N39.0 Urinary tract infection, site not specified; S71.102A Unspecified open wound, left thigh, initial encounter; E11.65 Type 2 diabetes mellitus with hyperglycemia; E11.21 Type 2 diabetes mellitus with diabetic nephropathy; N18.9 Chronic kidney disease, unspecified; E83.42 Hypomagnesemia; D63.8 Anemia in other chronic diseases classified elsewhere; N32.9 Bladder disorder, unspecified; E11.22 Type 2 diabetes mellitus with diabetic chronic kidney disease; E78.5 Hyperlipidemia, unspecified; G93.89 Other specified disorders of brain; F01.50 Vascular dementia, unspecified severity, without behavioral disturbance, psychotic disturbance, mood disturbance, and anxiety; G30.9 Alzheimer's disease, unspecified; F02.80 Dementia in other diseases classified elsewhere, unspecified severity, without behavioral disturbance, psychotic disturbance, mood disturbance, and anxiety; K70.30 Alcoholic cirrhosis of liver without ascites; K40.90 Unilateral inguinal hernia, without obstruction or gangrene, not specified as recurrent; Z20.822 Contact with and (suspected) exposure to COVID-19; X58.XXXA Exposure to other specified factors, initial encounter; I12.9 Hypertensive chronic kidney disease with stage 1 through stage 4 chronic kidney disease, or unspecified chronic kidney disease; I25.10 Atherosclerotic heart disease of native coronary artery without angina pectoris; Z79.4 Long term (current) use of insulin; Z82.49 Family history of ischemic heart disease and other diseases of the circulatory system; Z83.3 Family history of diabetes mellitus; Z86.73 Personal history of transient ischemic attack (TIA), and cerebral infarction without residual deficits; Y93.89 Activity, other specified; Y92.89 Other specified places as the place of occurrence of the external cause; Y99.8 Other external cause status
CPT/HCPCS: 36415; 36600; 70450; 71045; 80048; 80053; 80061; 81001; 82010; 82550; 82805; 82962; 83605; 83690; 83735; 83880; 83930; 84100; 84146; 84443; 84484; 85007; 85025; 85027; 85610; 85730; 87040; 87081; 87086; 87088; 87426; 93005; 94640; 96361; 96365; 97110; 97116; 97163; 97530; 99291; G0378; J0696; J1335; J1450; J1815; J3490; J7060